=== PATIENT | female | born 1950 | race Caucasian/White ===

== ENCOUNTER 2016-12-11 17:23 | Emergency (ER) | payer MEDICARE, MEDICAID ==
[2016-12-11] MEDS ORDERED: Dexamethasone 4 mg/ml Vial ONE (17:56)
== END 2016-12-11 18:31 | disposition home or self-care (01) ==
LOC: ERS 17:23
DX: L85.3 Xerosis cutis (principal); I25.10 Atherosclerotic heart disease of native coronary artery without angina pectoris; E03.9 Hypothyroidism, unspecified; I10 Essential (primary) hypertension; J43.9 Emphysema, unspecified; F17.210 Nicotine dependence, cigarettes, uncomplicated
CPT/HCPCS: 96372; J1100

== ENCOUNTER 2016-12-14 17:57 | Emergency (ER) | payer MEDICARE, MEDICAID ==
[2016-12-14 18:19] LABS: #Basophils 0.1 thou/uL (0.0-0.2); #Eosinphils 0.1 thou/uL (0.0-0.7); #Lymphocytes 3.1 thou/uL (1.20-3.40); #Monocytes 0.7 thou/uL (0.11-0.59); #Neutrophils 7.1 thou/uL (1.40-6.50); %Basophils 0.8 % (0.0-1.0); %Eosinophils 0.7 % (0.0-10.0); %Lymphocytes 28.1 % (21.0-51.0); %Monocytes 6.4 % (0.0-10.0); Hematocrit 46.3 % (36.0-47.0); Mean Platelet Volume 8.4 fL (7.4-10.4); Red Blood Cell (RBC) Count 4.86 mill/uL (4.20-5.40); White Blood Cell (WBC) Count 11.1 thou/uL (4.8-10.8)
[2016-12-14 18:25] LABS: PTT 29.3 SEC (22.9-36.1); Prothrombin Time 13.9 SEC (12.0-14.7)
[2016-12-14 18:46] LABS: ALT (SGPT) 16 U/L (8-55); AST (SGOT) 19 U/L (5-34); Alkaline Phosphatase 67 U/L (40-150); Anion Gap 13 mmol/L (10-20); BUN (Urea Nitrogen) 8 mg/dL (9.8-20.1); Bilirubin, Total 0.6 mg/dL (0.2-1.2); CK (CPK) 65 U/L (29-168); Calc. Creatinine Clearance 0 mL/min (70-130); Calcium 8.4 mg/dL (7.8-10.44); Carbon Dioxide 25 mmol/L (23-31); Chloride 102 mmol/L (98-107); Estimated GFR-MDRD 73; Globulin 4.8 g/dL (2.4-3.5); Lipase 15 U/L (8-78); Protein, Total 8.7 g/dL (6.0-8.3)
--- NOTE | 2016-12-14 18:49 | RAD ---
CHEST ONE VIEW PORTABLE: 12/14/16 HISTORY: 66-year-old female with chest pain and hives and difficulty breathing. COMPARISON: 07/29/12, 07/01/16. Monitor leads overlie the chest. There is borderline cardiomegaly. There are extensive linear, inter stitial and reticulonodular parenchymal changes bilaterally which appear stable from the prior study . These have the appearance of extensive chronic interstitial lung disease including pulmonary fibro sis. Minimal hyperinflation. No confluent pneumonia. IMPRESSION: Extensive bilateral interstitial, linear, and reticulonodular parenchymal changes stable from prior study. Evidence for extensive chronic interstitial lung disease including interstitial fibrosis. Bor derline cardiomegaly. No confluent pneumonia. POS: [facility]
[2016-12-14 18:50] LABS: Troponin I Less than 0.010 ng/mL (< 0.028)
[2016-12-14] MEDS ORDERED: Fentanyl 100 MCG/2 ML VIAL ONE (18:55)
[2016-12-14] MEDS ORDERED: Lorazepam 1 MG TAB ONE (18:55)
== END 2016-12-14 22:30 | disposition home or self-care (01) ==
LOC: ERS 17:57
DX: L30.9 Dermatitis, unspecified (principal); I25.10 Atherosclerotic heart disease of native coronary artery without angina pectoris; I25.2 Old myocardial infarction; E03.9 Hypothyroidism, unspecified; I10 Essential (primary) hypertension; J44.9 Chronic obstructive pulmonary disease, unspecified; F17.210 Nicotine dependence, cigarettes, uncomplicated; Z79.899 Other long term (current) drug therapy
CPT/HCPCS: 71010; 80053; 82553; 83690; 84484; 85025; 85610; 85730; 93005; 94760; 96374; J3010

== ENCOUNTER 2017-10-16 13:43 | Outpatient (CLI) | payer MEDICARE, MEDICAID ==
--- NOTE | 2017-10-16 14:41 | RAD ---
PA AND LATERAL CHEST: Indication: History or dyspnea. Comparison: 12-14-16 FINDINGS: Fibrotic change is stable. Mild cardiomegaly is stable. No pleural effusion is evident. No acute osse ous abnormality is noted. IMPRESSION: Stable chronic lung changes. POS: [facility]
== END 2017-10-16 13:44 | disposition home or self-care (01) ==
LOC: RAD 13:43
PROVIDERS: ATTEND Internal Medicine
DX: R06.00 Dyspnea, unspecified (principal)
CPT/HCPCS: 36415; 71046; 80053; 80061; 84443; 85025

== ENCOUNTER 2017-12-02 12:59 | Outpatient (CLI) | payer MEDICARE, MEDICAID | END 2017-12-02 13:00 | disposition home or self-care (01) | LOC: CP 12:59 | PROVIDERS: ATTEND Internal Medicine | DX: J44.9 Chronic obstructive pulmonary disease, unspecified (principal) | CPT/HCPCS: 94060; 94727; 94729 ==

== ENCOUNTER 2017-12-25 20:30 | Outpatient (CLI) | payer MEDICARE, MEDICAID | END 2017-12-25 20:31 | disposition home or self-care (01) | LOC: SLEEPLAB 20:30 | PROVIDERS: ATTEND Internal Medicine | DX: G47.33 Obstructive sleep apnea (adult) (pediatric) (principal); R09.89 Other specified symptoms and signs involving the circulatory and respiratory systems; E66.9 Obesity, unspecified; R51 Headache; R06.83 Snoring; I10 Essential (primary) hypertension; R35.1 Nocturia; K21.9 Gastro-esophageal reflux disease without esophagitis; R09.02 Hypoxemia; Z68.30 Body mass index [BMI] 30.0-30.9, adult | CPT/HCPCS: 95810 ==

== ENCOUNTER 2018-01-15 13:12 | Outpatient (CLI) | payer MEDICARE, MEDICAID ==
--- NOTE | 2018-01-15 16:03 | CT ---
HIGH RESOLUTION CHEST CT: 01/15/18 HISTORY: Long time smoker. Interstitial lung disease. Shortness of breath. COMPARISON: A CT pulmonary lung scan performed 09/09/[address] angio of the chest which was performed 07/18 04/01. There is fairly extensive interstitial fibrotic lung changes. There is evidence for honeycombing in t he lung apices. The changes are slightly upper lobe predominant, particularly the honeycombing type c hanges and more peripheral in orientation. The findings when considering the differences in technique are fairly similar to the previous examination. The honeycombing changes may have slightly progresse d, although difficult to compared given the differences in technique. No bronchiectatic change. No pu lmonary nodules or any discrete infiltrates are seen. The mediastinal nodes are stable. The visualized liver parenchyma shows no focal findings. The right and left adrenal glands are normal . IMPRESSION: Interstitial fibrotic lung change with evidence of honeycombing in the upper lobes. Changes are sligh tly more upper lobe predominant and also generally more peripheral in location but nonspecific. Findi ngs are relatively stable as compared to the previous studies. POS: [facility]
== END 2018-01-15 13:13 | disposition home or self-care (01) ==
LOC: BICCT 13:12
PROVIDERS: ATTEND Internal Medicine
DX: J84.10 Pulmonary fibrosis, unspecified (principal); G47.33 Obstructive sleep apnea (adult) (pediatric); J96.11 Chronic respiratory failure with hypoxia; J98.4 Other disorders of lung
CPT/HCPCS: 36415; 71250; 82787; 83520; 86038; 86200; 86225; 86256; 86331; 86602; 86606; 86671

== ENCOUNTER 2018-09-16 13:04 | Outpatient (CLI) | payer MEDICARE, MEDICAID ==
--- NOTE | 2018-09-18 10:44 | PFT ---
PATIENT HISTORY: HEIGHT: 62 IN WEIGHT: 185 SMOKER: YES HOW LON YRS PACKS PER DAY 1 PRODUCTIVE COUGH: LUNG DISEASE: PHYSICIAN INTERPRETATION FINAL REPORT: There is mild reduction in Vital Capacity, Expiratory Flows are normal. Gas transfer is severely reduced. IMPRESSION: Restrictive pulmonary impairment. Severely reduced diffusion capacity Journeyman Plumber: RICARDO Welder Gas: RICARDO HEREDIA
== END 2018-09-16 13:05 | disposition home or self-care (01) ==
LOC: CP 13:04
PROVIDERS: ATTEND Internal Medicine
DX: J84.9 Interstitial pulmonary disease, unspecified (principal)
CPT/HCPCS: 94010; 94729

== ENCOUNTER 2018-09-25 13:31 | Emergency (ER) | payer MEDICARE, MEDICAID ==
[2018-09-25] MEDS ORDERED: Fentanyl 100 MCG/2 ML VIAL ONE (14:03)
[2018-09-25 14:04] LABS: #Eosinphils 0.2 thou/uL (0.0-0.7); #Lymphocytes 2.7 thou/uL (1.20-3.40); #Monocytes 0.5 thou/uL (0.11-0.59); #Neutrophils 6.6 thou/uL (1.40-6.50); %Basophils 0.5 % (0.0-1.0); %Eosinophils 2.2 % (0.0-10.0); %Lymphocytes 26.6 % (21.0-51.0); %Monocytes 5.1 % (0.0-10.0); %Neutrophils 65.6 % (42.0-75.0); Hemoglobin 14.2 g/dL (12.0-16.0); Mean Corpuscular HGB CONC 33.3 g/dL (32.0-36.0); Mean Corpuscular Hemoglobin 29.3 pg (27.0-31.0); Mean Corpuscular Volume 88.1 fL (78.0-98.0); Mean Platelet Volume 8.3 fL (7.4-10.4); Platelet Count 238 thou/uL (130-400); RBC Distribution Width 12.9 % (11.5-14.5); Red Blood Cell (RBC) Count 4.85 mill/uL (4.20-5.40); White Blood Cell (WBC) Count 10.1 thou/uL (4.8-10.8)
[2018-09-25] MEDS ORDERED: Promethazine HCl 25 MG/ML VIAL ONE (14:04)
[2018-09-25 14:25] LABS: ALT (SGPT) 11 U/L (8-55); AST (SGOT) 17 U/L (5-34); Albumin 3.8 g/dL (3.4-4.8); Alkaline Phosphatase 68 U/L (40-150); Anion Gap 13 mmol/L (10-20); BUN (Urea Nitrogen) 9 mg/dL (9.8-20.1); Bilirubin, Total 0.5 mg/dL (0.2-1.2); Calc. Creatinine Clearance 0 mL/min (70-130); Calcium 9.2 mg/dL (7.8-10.44); Carbon Dioxide 26 mmol/L (23-31); Chloride 100 mmol/L (98-107); Estimated GFR-MDRD 67; Globulin 4.5 g/dL (2.4-3.5); Glucose 95 mg/dL (80-115); Protein, Total 8.3 g/dL (6.0-8.3); Sodium 135 mmol/L (136-145)
--- NOTE | 2018-09-25 14:58 | CT ---
CTA CHEST WITH IV CONTRAST AND 3-D POSTPROCESSING CTA ABDOMEN WITH IV CONTRAST AND 3-D POSTPROCESSING: HISTORY: Back pain, concern for aortic dissection FINDINGS: There are vascular calcifications in good contrast opacification of the thoracoabdominal aorta withou t intimal flap to suggest dissection. There is mediastinal lymphadenopathy with a large right paratracheal lymph node measuring about 2.2 cm. There are changes of pulmonary fibrosis in the lung f ields bilaterally. No pleural or pericardial effusions are identified. No free air or free fluid is seen in the abdomen. The solid organs are grossly unremarkable. The carola ent is post cholecystectomy. A small hiatal hernia is present. There are degenerative changes in the thoracic and lumbar spine. IMPRESSION: 1. No evidence of aortic aneurysm or dissection. 2. Mediastinal lymphadenopathy.
[2018-09-25] MEDS ORDERED: Diazepam 5 MG TAB ONE (15:58)
[2018-09-25] MEDS ORDERED: ISOVUE-370 76%-LOCM 1 ML ONE (16:06)
--- NOTE | 2018-10-03 11:58 | EKG ---
Test Reason : Blood Pressure : / mmHG Vent. Rate : 053 BPM Atrial Rate : 053 BPM P-R Int : 122 ms QRS Dur : 082 ms QT Int : 488 ms P-R-T Axes : 058 067 041 degrees QTc Int : 457 ms Sinus bradycardia When compared with ECG of 14-DEC-2016 T waves inversion , old Confirmed by DARRION THAPA DO ([id number]), online editor KHANG ALCANTAR ([id number]) on 10/03/2018 11:58:10 AM Referred By: Confirmed By:DARRION THAPA DO
== END 2018-09-25 16:54 | disposition home or self-care (01) ==
LOC: ERS 13:31
DX: M54.5 Low back pain (principal); I25.10 Atherosclerotic heart disease of native coronary artery without angina pectoris; E03.9 Hypothyroidism, unspecified; I10 Essential (primary) hypertension; J44.9 Chronic obstructive pulmonary disease, unspecified; F17.210 Nicotine dependence, cigarettes, uncomplicated; Z79.899 Other long term (current) drug therapy
CPT/HCPCS: 71275; 80053; 84484; 85025; 93005; 96361; 96365; 96374; J2550; J3010; Q9966

== ENCOUNTER 2018-09-28 11:24 | Emergency (ER) | payer MEDICARE, MEDICAID ==
[2018-09-28 14:09] LABS: Bilirubin Negative (Negative); Blood, Urine Trace (Negative); Clarity Turbid (Clear); Glucose, Urine (Dipstick) Normal (Negative); Leukocyte 500 Leu/uL (Negative); Nitrite Negative (Negative); Protein, Urine (Dipstick) 10 mg/dL (Neg-Trace); Urobilinogen Normal mg/dL (Less than 2); WBC/HPF Greater than 50 HPF (0-3)
[2018-09-28] MEDS ORDERED: Ondansetron ODT 4 MG TAB ONE (14:14)
[2018-09-28] MEDS ORDERED: HYDROcodone/Acetaminophen 5/325 mg Tablet ONE (14:14)
[2018-09-28 14:23] LABS: Bacteria/HPF 3+ HPF (None Seen)
--- NOTE | 2018-09-28 14:40 | CT ---
CT lumbar spine without contrast: HISTORY: Back Pain COMPARISON: No prior CT exams of the lumbar spine available FINDINGS: Vascular calcifications are seen in the abdominal aorta and involving the iliac arteries. There is mi ld nonspecific dilatation of the proximal right ureter of uncertain etiology. No overt hydronephrosis is present. There is a compression fracture involving the superior endplate of the T12 vertebral body. This was s een on CTA of the abdomen on 09/25/2018; although, better delineated on this examination, and the degree of height loss is increased from that exam with approximately 10-15% loss of height. There is trace retropulsion of the posterior superior endplate of the T12 vertebral body with only very slight effacement of the ventral aspect of the ventral subarachnoid space in this region. Remaining v ertebral body heights are within normal limits, and no additional fracture or subluxation is seen. T12-L1 level: There is a mild disc osteophyte complex which results in slight effacement of the ventr al subarachnoid space. Neural foramina are patent. L1-2: There is trace retrolisthesis of L1 on L2. There is no significant central canal or neural fora tana narrowing. L2-3: There is a minimal disc osteophyte complex with slight with mild degree of height loss. Flatten ing of the anterior aspect of the thecal sac. Neural foramina are patent. L3-4: There is a mild broad-based disc bulge and facet hypertrophic changes. There is mild generalize d narrowing of the central spinal canal. Only minimal encroachment on each neural foramen is present. L4-5: There is mild broad-based disc osteophyte complex and facet hypertrophic changes with associate d mild ligamentous thickening. Findings result in mild generalized narrowing of the central spinal canal with mild right and minimal left-sided neural foraminal narrowing. L5-S1: There is a broad-based disc osteophyte complex with calcification of the posterior central mar gin of the intervertebral disc. There is no significant narrowing of the central spinal canal or either neural foramen. Facet degenerative changes are present. IMPRESSION: 1. Burst fracture superior endplate T12 vertebral body; however, the degree of height loss is increas ed from the study on 09/25/2018. 2. Mild degenerative changes in the lumbar spine. 3. Slight retrolisthesis of L1 on L2.
== END 2018-09-28 15:38 | disposition home or self-care (01) ==
LOC: ERS 11:24
DX: S22.081A Stable burst fracture of T11-T12 vertebra, initial encounter for closed fracture (principal); I49.9 Cardiac arrhythmia, unspecified; E03.9 Hypothyroidism, unspecified; I10 Essential (primary) hypertension; F17.210 Nicotine dependence, cigarettes, uncomplicated; X58.XXXA Exposure to other specified factors, initial encounter
CPT/HCPCS: 72131; 81003; 81015; Q0162

== ENCOUNTER 2018-10-20 11:31 | Day surgery (SDC) | payer MEDICARE, MEDICAID ==
[2018-10-16 12:20] VITALS: BMI 33.8
[2018-10-20] MEDS ORDERED: Sodium Chloride 0.9% 1,000 ML IV SCH (12:15)
[2018-10-20] MEDS ORDERED: Lidocaine 4% PF 5 ML AMP NEB SCH (12:15)
[2018-10-20] MEDS ORDERED: Fentanyl 100 MCG/2 ML VIAL ONE ×3 (12:33→15:35)
[2018-10-20] MEDS ORDERED: Famotidine/PF 20 mg/2ml Vial ONE (12:33)
--- NOTE | 2018-10-20 14:18 | HP ---
SERVICE: Pulmonary Medicine. REASON FOR VISIT: Followup hospital stay. HISTORY OF PRESENT ILLNESS: The patient is a very pleasant 68-year-old white female with past medical history significant for an interstitial lung process. Previously, this was fairly quiescent. We have been following her in the outpatient setting, and pulmonary function studies were roughly stable, if not, slightly decreasing. That being said, she remained asymptomatic and did not have significant dyspnea that limited her activity or cough. A friend was helping her moving some furniture and they were doing it wrong. She went to help, and when she lifted this dresser, she felt a horrendous pop in her back and had immediate onset of back discomfort. She sought medical attention for this thing. A CT of the aorta was performed in the emergency department. On it, she redemonstrated her mediastinal lymphadenopathy, but she seemed to have some degree of progression of interstitial lung process. As such, she was asked to return here. She is coughing a little bit more than typical. It is not a daily cough, and it is not pervasive throughout the day. It is nonproductive. She is also having a little bit of increasing dyspnea ever since she got the pop in her back. She believes that this is likely secondary to discomfort because when she takes a deep breath, it hurts. PAST MEDICAL HISTORY: 1. Fibromyalgia. 2. Dyslipidemia. 3. Hypothyroidism, status post radioiodine ablation. 4. Hypertension. 5. Osteoporosis. 6. Osteoarthritis. 7. Chronic pain. 8. Gastroesophageal reflux disease. 9. Interstitial lung disease. 10. Abnormal CANDACE. 11. Chronic hypoxic respiratory failure. PAST SURGICAL HISTORY: 1. Cholecystectomy. 2. Cardiac catheterization x2. 3. Hysterectomy. 4. Right leg surgeries, multiple secondary to E. coli infection. 5. Oophorectomy. 6. Resection of the bottom of her foot for a pompholyx. SOCIAL HISTORY: Negative for any significant alcohol or illicit drug use. She has a [id number] history of smoking and is actively trying to quit. She denies any exposure to chemicals, dust, asbestos, or tuberculosis. FAMILY HISTORY: Positive for anemia, diabetes, heart disease, COPD, cancer, heart failure, thyroid disease, arthritis, hypertension, sleep apnea, major depressive disorder, and interstitial lung disease in 2 sisters. Additionally, she had a child who with asthma exacerbation. ALLERGIES: LATEX, PENICILLIN, NONSTEROIDAL ANTI-INFLAMMATORY DRUGS, ASPIRIN, BENADRYL, FOSAMAX, WELLBUTRIN. MEDICATIONS: 1. Metoprolol 12.5 mg p.o. b.i.d. 2. Plavix 75 mg p.o. daily (on hold). 3. Levothyroxine 100 mcg p.o. daily. 4. Hydroxyzine 25 mg p.o. q.8 hours. 5. Trazodone 50 mg p.o. at bedtime. 6. Gabapentin 300 mg p.o. q.6 hours. 7. Protonix 40 mg p.o. daily. 8. Chantix 1 mg p.o. b.i.d. 9. Zofran 4 mg p.o. b.i.d. while using Chantix. 10. Combivent 1 inhalation q.6 hours as needed (rare use). REVIEW OF SYSTEMS: General, head, ears, eyes, nose, throat, cardiovascular, respiratory, GI, , musculoskeletal, neurologic, and skin is negative except as mentioned in the HPI. PHYSICAL EXAMINATION: VITAL SIGNS: Afebrile, pulse 63, respirations 14, and saturation 94% on room air. GENERAL: The patient is awake and alert, in no apparent distress. LUNGS: Decent air entry. Minimal crackling is present. No prolonged expiratory phase or rhonchi are appreciated. HEART: Normal rate and regular. ABDOMEN: Soft, nontender, nondistended. Bowel sounds are positive. MUSCULOSKELETAL: No cyanosis or clubbing. No pitting in the bilateral lower extremities. NEUROLOGIC: Grossly nonfocal. IMAGING STUDIES: CT with contrast did not demonstrate any significant aortopathy. That being said, there seems to be some degree of progression of the interstitial lung process. Mediastinal lymphadenopathy is once again redemonstrated. This has been stable since 2013. ASSESSMENT: 1. Interstitial lung disease, likely associated with connective tissue process. 2. Abnormal CANDACE. 3. Pulmonary fibrosis with predominantly apical distribution. 4. Chronic hypoxic respiratory failure. 5. Mediastinal lymphadenopathy, stable since 2013. DISCUSSION AND PLAN: The patient will undergo a bronchoscopy and an endoscopic bronchial ultrasound-guided fine-needle aspiration of the mediastinal lymph nodes. The bronchoscopy is to investigate the interstitial lung process. I do believe this is a chronic issue. Since we are going to put her through procedure, at the same time, we will sample a lymph node to see if this gives us any idea about what our diagnosis is. Return to clinic as previously directed in clinic. Job ID: [id number]
[2018-10-20 16:39] LABS: BF Color Colorless; BF RBC Count - Manual 1044 /cumm; BF WBC/Nonhematics Ct. - Manua 190 /cumm; Body Fluid Source Bronchial Washings; Clarity Hazy (Clear); Tube # 1
[2018-10-20 16:59] LABS: BF Segmented Neutrophils 10 %; Cell Count Non Hematic 70 %; Eosinophils 12 %; Lymphocytes 7 %
[2018-10-20] MEDS ORDERED: ePHEDrine 50 MG/ML VIAL ONE (17:51)
[2018-10-20] MEDS ORDERED: Lidocaine 1% PF 5 ML VIAL ONE (17:51)
[2018-10-20] MEDS ORDERED: Succinylcholine Chloride 20 MG/ML 10 ml SYRINGE FS ONE (17:51)
[2018-10-20] MEDS ORDERED: PROPOFOL 200 MG/20 ML VIAL ONE (17:51)
--- NOTE | 2018-10-21 02:15 | OP ---
DATE OF PROCEDURE: 10/20/2018 SERVICE: Pulmonary Medicine. PROCEDURE PERFORMED: Fiberoptic bronchoscopy with; 1. Visual airway inspection. 2. Bronchoalveolar lavage of the right lower lobe. 3. Transbronchial biopsies of the right middle lobe and right lower lobe. 4. Endoscopic bronchial ultrasound-guided transbronchial needle aspiration of station R4, 7. PREPROCEDURE DIAGNOSES: 1. Interstitial lung disease. 2. Mediastinal lymphadenopathy. POSTPROCEDURE DIAGNOSES: 1. Interstitial lung disease. 2. Mediastinal lymphadenopathy. ANESTHESIA: General. PREANESTHESIA ASSESSMENT: H and P had been performed. The patient's medications and allergies were reviewed. Informed consent was obtained after discussing the rationale, benefits, and risks of the procedure. Alternative options for sample collection were discussed. TIME-OUT: The patient was positively identified with name and date of . The proposed procedure was verified. After the induction with anesthesia, the curvilinear endoscopic bronchial ultrasound Olympus bronchoscope was introduced through the endotracheal tube and into the tracheobronchial tree. Very limited airway inspection was carried out with no abnormalities noted in the trachea or mainstem bronchi. The mucosal surfaces were friable and inflamed throughout with no discrete lesions identified. The bronchoscope was withdrawn into the trachea and a lucia survey was performed. Endoscopic ultrasound-guided transbronchial needle aspiration of station R4 and 7 was performed. No significant post biopsy bleeding occurred. The patient has stable vitals throughout the entire procedure without significant desaturations. This scope was removed and a diagnostic fiberoptic bronchoscope was subsequently introduced. It was advanced into the trachea, where a tracheobronchial tree inspection was carried out with clear identification of the right upper lobe, right middle lobe, right lower lobe, left upper lobe, lingula , and left lower lobe. Anatomy was normal to the segmental level. Bronchoalveolar lavage was obtained from the right lower lobe. Transbronchial biopsies were subsequently obtained in the right lower lobe and right middle lobe under fluoroscopic guidance. Hemostasis was verified. The bronchoscope was subsequently removed from the patient. Postprocedure x-ray did not demonstrate a pneumothorax. FINDINGS: 1. No endobronchial disease was identified. 2. Mucosal surfaces were inflamed and friable throughout bilateral lung servin. 3. Secretions were minimal, but extremely tenacious, with a pale yellow color. 4. Sanjuana appeared blunted. 5. Rapid on-site pathology demonstrated adequate lymphocytes with no obvious malignancies present. They requested an additional sample for flow, which was subsequently provided. SPECIMENS OBTAINED: 1. FNA of R4, 7 for ROSP, cell block, and flow. 2. Pathology on BAL and transbronchial biopsies. 3. Microbiology on BAL. COMPLICATIONS: None. ESTIMATED BLOOD LOSS: 5 mL. FLUOROSCOPY TIME: 75 seconds. DISPOSITION: The patient will be discharged home with postprocedure instructions. She will return to clinic as previously directed. Job ID: [id number] MTDD
== END 2018-10-20 17:15 | disposition home or self-care (01) ==
LOC: SDC 11:31
PROVIDERS: ATTEND Internal Medicine
PROC: 0BDF8ZX Extraction of Right Lower Lung Lobe, Via Natural or Artificial Opening Endoscopic, Diagnostic (ICD-10-PCS; principal; 2018-10-20)
PROC: 0B9F8ZX Drainage of Right Lower Lung Lobe, Via Natural or Artificial Opening Endoscopic, Diagnostic (ICD-10-PCS; 2018-10-20)
PROC: 07D78ZX Extraction of Thorax Lymphatic, Via Natural or Artificial Opening Endoscopic, Diagnostic (ICD-10-PCS; 2018-10-20)
DX: R59.0 Localized enlarged lymph nodes (principal); J84.10 Pulmonary fibrosis, unspecified; J96.11 Chronic respiratory failure with hypoxia; I10 Essential (primary) hypertension; E78.5 Hyperlipidemia, unspecified; E03.9 Hypothyroidism, unspecified; M19.90 Unspecified osteoarthritis, unspecified site; K21.9 Gastro-esophageal reflux disease without esophagitis; M81.0 Age-related osteoporosis without current pathological fracture; Z87.891 Personal history of nicotine dependence; Z88.0 Allergy status to penicillin; Z88.8 Allergy status to other drugs, medicaments and biological substances; Z91.040 Latex allergy status
CPT/HCPCS: 76000; 85060; 87070; 87116; 87205; 87206; 88112; 88172; 88173; 88177; 88184; 88305; 88312; 89051; J0131; J2001; J2704; J3010; J3490; J7620; S0028

== ENCOUNTER 2018-11-19 07:53 | Inpatient (IN) | payer MEDICARE, MEDICAID ==
[2018-11-18 12:22] VITALS: BMI 32.1
[2018-11-19] MEDS ORDERED: PROPOFOL 200 MG/20 ML VIAL ONE (10:12)
[2018-11-19] MEDS ORDERED: Rocuronium Bromide 10 MG/ML (10ML VIAL) ONE (10:12)
[2018-11-19] MEDS ORDERED: Ondansetron PF 4 MG/2 ML Vial ONE (10:12)
[2018-11-19] MEDS ORDERED: Glycopyrrolate 0.2 MG/ML 5 ML SYRINGE ONE (10:12)
[2018-11-19] MEDS ORDERED: Lidocaine 1% PF 5 ML VIAL ONE (10:12)
[2018-11-19] MEDS ORDERED: Dexamethasone 20 MG/5 ML VIAL ONE (10:12)
[2018-11-19] MEDS ORDERED: Midazolam HCl 2 mg/2 ml Vial ONE (10:35)
[2018-11-19] MEDS ORDERED: Fentanyl 100 MCG/2 ML VIAL ONE ×2 (10:35→13:21)
[2018-11-19] MEDS ORDERED: Clindamycin/D5W 900 mg/50 ml Premix Bag ONE (10:59)
[2018-11-19] MEDS ORDERED: Levofloxacin 500 mg/D5W 100 ml Premix Bag ONE (10:59)
[2018-11-19 12:01] LABS: #Eosinphils 0.3 thou/uL (0.0-0.7); #Monocytes 0.4 thou/uL (0.11-0.59); %Basophils 0.6 % (0.0-1.0); %Eosinophils 3.4 % (0.0-10.0); %Lymphocytes 26.4 % (21.0-51.0); %Monocytes 4.9 % (0.0-10.0); %Neutrophils 64.7 % (42.0-75.0); Anion Gap 13 mmol/L (10-20); BUN (Urea Nitrogen) 6 mg/dL (9.8-20.1); Calc. Creatinine Clearance 80 mL/min (70-130); Calcium 9.3 mg/dL (7.8-10.44); Carbon Dioxide 26 mmol/L (23-31); Chloride 100 mmol/L (98-107); Estimated GFR-MDRD 67; Glucose 79 mg/dL (80-115); Hemoglobin 15.9 g/dL (12.0-16.0); Mean Corpuscular HGB CONC 33.6 g/dL (32.0-36.0); Mean Corpuscular Hemoglobin 29.7 pg (27.0-31.0); Mean Corpuscular Volume 88.6 fL (78.0-98.0); Mean Platelet Volume 8.8 fL (7.4-10.4); Platelet Count 190 thou/uL (130-400); RBC Distribution Width 12.8 % (11.5-14.5); Red Blood Cell (RBC) Count 5.37 mill/uL (4.20-5.40); Sodium 135 mmol/L (136-145); White Blood Cell (WBC) Count 7.7 thou/uL (4.8-10.8)
[2018-11-19] MEDS ORDERED: Bupivacaine HCl 0.5%/Epinephrine 1:200,000/PF 30 ml Vial ONE (12:43)
[2018-11-19] MEDS ORDERED: Ondansetron HCl/PF 4 MG/2 ML Vial IVP PRN (13:22)
[2018-11-19] MEDS ORDERED: Albumin 5% 500 ML ONE (13:44)
[2018-11-19] MEDS ORDERED: hydrOXYzine 25 MG TAB PO PRN (14:05)
[2018-11-19] MEDS ORDERED: Fentanyl 100 MCG/2 ML VIAL SLOW IVP PRN (14:05)
[2018-11-19] MEDS ORDERED: Ondansetron PF 4 MG/2 ML Vial IVP PRN (14:05)
[2018-11-19] MEDS ORDERED: HYDROcodone/Acetaminophen 10/325 mg Tablet PO PRN (14:05)
[2018-11-19] MEDS ORDERED: Promethazine HCl 25 MG/ML VIAL IM PRN (14:05)
[2018-11-19] MEDS ORDERED: Acetaminophen 325 MG TAB PO PRN (14:05)
[2018-11-19] MEDS ORDERED: HYDROcodone/Acetaminophen 5/325 mg Tablet PO PRN (14:05)
[2018-11-19] MEDS ORDERED: hydrALAZINE 20 MG/ML VIAL SLOW IVP PRN (14:05)
--- NOTE | 2018-11-19 15:00 | RAD ---
EXAM: Single view of the chest HISTORY: Status post thoracotomy COMPARISON: 12/14/2016 FINDINGS: Single view of the chest shows a normal sized cardiomediastinal silhouette. Diffuse increa sed interstitial markings are present. There is a right-sided chest tube without obvious pneumothorax. There is no evidence of consolidation, mass, or pleural effusion. The bones are unrema rkable. IMPRESSION: Status post right thoracotomy without evidence of pneumothorax.
--- NOTE | 2018-11-19 16:24 | OP ---
DATE OF PROCEDURE: 11/19/2018 PREOPERATIVE DIAGNOSIS: Bilateral interstitial lung disease. POSTOPERATIVE DIAGNOSIS: Bilateral interstitial lung disease. PROCEDURE PERFORMED: Right thoracoscopy with right middle lobe wedge resection sent for pathology. ANESTHESIA: General endotracheal - Dr. Erick Ho. ESTIMATED BLOOD LOSS: Minimal. DRAINS: A 24-[place] Brandon drain x1. SPECIMENS: Right middle lobe wedge resection. DESCRIPTION OF PROCEDURE: After consent was obtained, the patient was brought to the operating room, placed in supine position on the operating room table. Appropriate central line and monitors were placed and general endotracheal anesthesia was induced. The patient was placed in the left lateral decubitus position. Joints were appropriately padded. SCDs were used. Flexible fiberoptic bronchoscopy was used to position the endotracheal tube and confirmed its positioning after rolling the patient. The right chest wall was prepped and draped in usual sterile fashion. Three separate port incisions were made. The lung was inspected. There was a nodular appearance to the surface of the lung. There was no pleural abnormality. There was no pleural fluid. The right middle lobe was elevated and a wedge resection taken. This was sent for routine pathologic examination. A 24-[place] chest tube was placed through the anterior port site. This was secured with silk suture. Wounds were closed in layers. 0.5% Marcaine block was performed. The patient was then awakened, extubated, and transferred to the recovery room in stable condition. Needle, sponge, and instrument counts were all reported as correct at the end of the procedure. Job ID: [id number]
[2018-11-19] MEDS: Fentanyl 100 MCG/2 ML VIAL SLOW IVP PRN ×3 (16:58→21:57)
[2018-11-19] MEDS ORDERED: ICOSAPENT ETHYL PO SCH (17:00)
[2018-11-19] MEDS: Sodium Chloride 0.9% 1,000 ML IV SCH (17:14)
[2018-11-19] MEDS: Gabapentin 300 MG CAP PO SCH ×2 (17:15→19:58)
--- NOTE | 2018-11-19 17:48 | CON ---
DATE OF CONSULTATION: 11/19/2018 CONSULTING PHYSICIAN: Dr. Dickson. REASON FOR CONSULTATION: Followup of lung biopsy. HISTORY OF PRESENT ILLNESS: This is a 68-year-old female, who underwent a right-sided thoracoscopic biopsy today for work up of interstitial lung disease. I saw her in the operating room afterward. Currently, she is having some pain from the surgery, but is otherwise doing well. PAST MEDICAL HISTORY: 1. Fibromyalgia. 2. Hyperlipidemia. 3. Hypothyroidism. 4. Hypertension. 5. Osteoporosis. 6. Osteoarthritis. 7. Gastroesophageal reflux disease. 8. Interstitial lung disease. 9. Elevated CANDACE. 10. Chronic hypoxic respiratory failure. PAST SURGICAL HISTORY: 1. Cholecystectomy. 2. Cardiac catheterization. 3. Hysterectomy. 4. Multiple leg surgeries. 5. Oophorectomy. FAMILY MEDICAL HISTORY: Remarkable for hypertension and heart disease. MEDICATIONS: Prior to admission: 1. Metoprolol. 2. Levothyroxine. 3. Plavix. 4. Norvasc. 5. Rosuvastatin. 6. Trazodone. 7. Hydralazine. 8. Gabapentin. 9. Hydrocodone/acetaminophen. 10. Combivent. SOCIAL HISTORY: Smokes 1 to 9 cigarettes per day. Does not consume alcohol. ALLERGIES: LATEX, PENICILLIN, NSAIDS, ASPIRIN, BENADRYL, FOSAMAX, AND WELLBUTRIN. PHYSICAL EXAMINATION: VITAL SIGNS: Heart rate 57, blood pressure 118/66, respiratory rate 18, and O2 saturation 94%. HEENT: Unremarkable. NECK: No adenopathy or JVD. CHEST: Clear to auscultation. CARDIAC: S1 and S2. Regular. ABDOMEN: Soft. EXTREMITIES: No clubbing, cyanosis, or edema. IMAGING: Chest x-ray shows a chest tube on the right. She has diffuse interstitial disease seen bilaterally. LABORATORY DATA: White blood cell count 7.7, hematocrit 47, and platelet count 190. Sodium 135, potassium 4, chloride 100, CO2 of 26, BUN 6, creatinine 0.8, and glucose 79. ASSESSMENT: 1. Status post thoracoscopic lung biopsy. 2. Interstitial lung disease. PLAN: Be happy to follow with you while she is in the hospital. I would expect it to be a few days before we get results. The patient is currently on empiric antibiotics. Job ID: [id number]
[2018-11-19] MEDS: Clindamycin/D5W 900 MG in Premix Bag 1 BAG IVPB SCH (17:50)
[2018-11-19] MEDS: traZODone HCl 50 MG TAB PO SCH (19:56)
[2018-11-19] MEDS: HYDROcodone/Acetaminophen 5/325 mg Tablet PO PRN (19:57)
[2018-11-19] MEDS: Metoprolol Tartrate 25 MG TAB PO SCH (19:57)
[2018-11-20] MEDS: Clindamycin/D5W 900 MG in Premix Bag 1 BAG IVPB SCH ×3 (00:38→10:02)
[2018-11-20] MEDS: Fentanyl 100 MCG/2 ML VIAL SLOW IVP PRN ×5 (00:39→14:00)
[2018-11-20] MEDS: Sodium Chloride 0.9% 1,000 ML IV SCH ×2 (04:47→17:12)
[2018-11-20 05:40] LABS: #Lymphocytes 1.2 thou/uL (1.20-3.40); #Monocytes 0.4 thou/uL (0.11-0.59); #Neutrophils 6.1 thou/uL (1.40-6.50); %Basophils 0.2 % (0.0-1.0); %Eosinophils 0.1 % (0.0-10.0); %Lymphocytes 14.9 % (21.0-51.0); %Monocytes 4.7 % (0.0-10.0); Hemoglobin 14.1 g/dL (12.0-16.0); Mean Corpuscular HGB CONC 32.9 g/dL (32.0-36.0); Mean Corpuscular Hemoglobin 29.5 pg (27.0-31.0); Mean Corpuscular Volume 89.6 fL (78.0-98.0); Mean Platelet Volume 8.4 fL (7.4-10.4); Platelet Count 172 thou/uL (130-400); RBC Distribution Width 12.6 % (11.5-14.5); Red Blood Cell (RBC) Count 4.77 mill/uL (4.20-5.40); White Blood Cell (WBC) Count 7.7 thou/uL (4.8-10.8)
[2018-11-20 05:58] LABS: Anion Gap 12 mmol/L (10-20); BUN (Urea Nitrogen) 7 mg/dL (9.8-20.1); Calc. Creatinine Clearance 90 mL/min (70-130); Calcium 8.9 mg/dL (7.8-10.44); Carbon Dioxide 27 mmol/L (23-31); Chloride 99 mmol/L (98-107); Estimated GFR-MDRD 77; Glucose 88 mg/dL (80-115); Potassium 4.1 mmol/L (3.5-5.1); Sodium 134 mmol/L (136-145)
[2018-11-20] MEDS: Levothyroxine Sodium 100 MCG TAB PO SCH (06:16)
[2018-11-20] MEDS: HYDROcodone/Acetaminophen 5/325 mg Tablet PO PRN ×3 (06:19→17:12)
--- NOTE | 2018-11-20 07:36 | PRG ---
DATE OF SERVICE: 11/20/2018 SUBJECTIVE: She is still sore at her operative site. She slept okay last night. OBJECTIVE: VITAL SIGNS: On exam, temperature is 97.8, pulse in the 40s to 50s, blood pressure 121/62, and O2 saturation 93%. Intake for 24 hours 1051, output 1450. HEENT: Unremarkable. NECK: No adenopathy or JVD. LUNGS: With bilateral soft crackles. She has a chest tube on the right, which I could not detect air leak. CARDIAC: S1 and S2, regular. ABDOMEN: Soft. EXTREMITIES: No edema. IMAGING DATA: Her chest x-ray shows a right chest tube. She has interstitial disease bilaterally. There is no evidence of pneumothorax. LABORATORY DATA: White blood cell count 7.7, hematocrit 42.7, and platelet count 172. Sodium 134, potassium 4.1, chloride 99, CO2 of 27, BUN 7, creatinine 0.7, and glucose 88. ASSESSMENT: Status post thoracoscopic lung biopsy for interstitial lung disease. PLAN: She can probably go home once her chest tube is out. She has oxygen already set up at home. I think it will be several days before her lung biopsy is back and she can follow up with Dr. Kingston in the clinic for that result. Job ID: [id number]
--- NOTE | 2018-11-20 08:50 | RAD ---
SINGLE VIEW OF THE CHEST: COMPARISON: 11/19/2018. HISTORY: Status post thoracotomy with shortness of breath. FINDINGS: A single view of the chest shows an enlarged but stable cardiomediastinal silhouette. Increased inte rstitial lung markings are seen. There is a right-sided chest tube without evidence of pneumothorax. Opacity is developing in the left lung base which may represent a pleural effusion, atelectasis, or an infiltrate. IMPRESSION: Developing opacity in the left lung base may represent atelectasis, infiltrate, or a pleural effusion . POS: [facility]
[2018-11-20] MEDS: Amlodipine 5 MG TAB PO SCH (09:00)
[2018-11-20] MEDS ORDERED: FLU VACC TS2019-20(65YR UP)/PF 180 MCG/0.5 ML SYRINGE IM ONE (09:00)
[2018-11-20] MEDS: Metoprolol Tartrate 25 MG TAB PO SCH ×2 (09:00→19:48)
[2018-11-20] MEDS: Gabapentin 300 MG CAP PO SCH ×3 (10:00→19:47)
[2018-11-20] MEDS: Rosuvastatin 10 MG TAB PO SCH (10:00)
[2018-11-20] MEDS: traZODone HCl 50 MG TAB PO SCH (19:47)
[2018-11-21] MEDS: HYDROcodone/Acetaminophen 5/325 mg Tablet PO PRN ×2 (00:22→09:20)
[2018-11-21] MEDS: Sodium Chloride 0.9% 1,000 ML IV SCH (00:23)
[2018-11-21] MEDS: Levothyroxine Sodium 100 MCG TAB PO SCH (05:43)
[2018-11-21] MEDS: Metoprolol Tartrate 25 MG TAB PO SCH (09:16)
[2018-11-21] MEDS: Amlodipine 5 MG TAB PO SCH (09:16)
[2018-11-21] MEDS: Gabapentin 300 MG CAP PO SCH (09:17)
[2018-11-21] MEDS: Rosuvastatin 10 MG TAB PO SCH (09:17)
--- NOTE | 2018-11-21 10:27 | DIS ---
DATE OF ADMISSION: 11/19/2018 DATE OF DISCHARGE: 11/21/2018 PRINCIPAL DIAGNOSIS: Interstitial lung disease. PROCEDURE PERFORMED: Right thoracoscopy with right middle lobe biopsy. HISTORY OF PRESENT ILLNESS AND HOSPITAL COURSE: The patient is a 68-year-old woman, who is oxygen dependent. She has diffuse interstitial infiltrates in both lungs on chest x-ray. Thoracoscopic lung biopsy was performed to sample sufficient tissue to allow for diagnosis and to guide therapy. She had no air leak on postoperative day #1, and her tube was removed on that afternoon. Today on postoperative day #2, she is afebrile, has O2 sats in the mid 90s. Her chest x-ray shows no pneumothorax, effusion, or focal infiltrate, and she is being discharged home. Job ID: [id number]
[2018-11-21 10:39] VITALS: TEMP 97.7
--- NOTE | 2018-11-21 11:33 | RAD ---
PORTABLE AP CHEST XRAY: HISTORY: Post thoracotomy. COMPARISON: 11/20/2018. FINDINGS: Cardiac silhouette is magnified by projection but stable in size but does appear mildly enlarged. Th ere are stable chronic interstitial lung changes seen bilaterally. No pneumothorax or pleural effusi on is appreciated. There is minimal thickening in the region of the right minor fissure. There are linear densities in the right lung base probably related to atelectasis. The suggested patchy parenc hymal changes of the left lung base are not appreciated on the current study and have improved with o nly mild linear densities present probably related to atelectasis. IMPRESSION: Chronic lung changes and bibasilar atelectasis. POS: [facility]
== END 2018-11-21 13:07 | disposition home or self-care (01) | DRG 167 ==
LOC: SURG A 10:24 → IMCU/EMU 17:07
PROVIDERS: ADMIT Thoracic Surgery (Cardiothoracic Vascular Surgery); ATTEND Thoracic Surgery (Cardiothoracic Vascular Surgery)
PROC: 0BBD8ZX Excision of Right Middle Lung Lobe, Via Natural or Artificial Opening Endoscopic, Diagnostic (ICD-10-PCS; principal; 2018-11-19)
DX: J84.9 Interstitial pulmonary disease, unspecified (principal); J96.11 Chronic respiratory failure with hypoxia; I10 Essential (primary) hypertension; E03.9 Hypothyroidism, unspecified; E78.2 Mixed hyperlipidemia; M79.7 Fibromyalgia; M19.90 Unspecified osteoarthritis, unspecified site; K21.9 Gastro-esophageal reflux disease without esophagitis; F17.210 Nicotine dependence, cigarettes, uncomplicated; Z90.49 Acquired absence of other specified parts of digestive tract; Z90.710 Acquired absence of both cervix and uterus; Z88.0 Allergy status to penicillin; Z88.8 Allergy status to other drugs, medicaments and biological substances
CPT/HCPCS: 36415; 71045; 80048; 85025; 88307; 94640; J0131; J0670; J1100; J1956; J2001; J2250; J2405; J2704; J3010; J3490; J7620; P9045

== ENCOUNTER 2018-12-16 13:33 | Outpatient (CLI) | payer MEDICARE, MEDICAID ==
--- NOTE | 2018-12-16 15:10 | RAD ---
TWO VIEW CHEST: 12/16/18 HISTORY: Interstitial lung disease. COMPARISON: 10/16/17 and a more recent portable exam of 11/21/18. Diffuse interstitial prominence is again seen throughout both lungs. Findings are more pronounced in the right upper lobe but appears stable. Heart size is upper normal and stable. Perihilar haziness is again noted but stable. IMPRESSION: Diffuse interstitial thickening bilaterally with associated stranding The findings appear slightly mo re pronounced when compared to films dating back to 2018 especially in the right upper lobe. Findings have not significantly changed from 11/21/18. POS: [facility]
== END 2018-12-16 13:34 | disposition home or self-care (01) ==
LOC: RAD 13:33
PROVIDERS: ATTEND Thoracic Surgery (Cardiothoracic Vascular Surgery)
DX: J84.9 Interstitial pulmonary disease, unspecified (principal); J98.4 Other disorders of lung
CPT/HCPCS: 71046

== ENCOUNTER 2019-01-05 13:09 | Outpatient (CLI) | payer MEDICARE, MEDICAID ==
--- NOTE | 2019-01-05 13:47 | ULT ---
ULTRASOUND RETROPERITONEUM COMPLETE: (RENAL) DATE: 01/05/2019 HISTORY: 68-year-old female with asymptomatic microscopic hematuria FINDINGS: The right kidney measures 9.5 x 4 x 4 cm. The left kidney measures 9.5 x 5 x 5.5 cm. Both kidneys have normal parenchymal echogenicity. There is no hydronephrosis. No moderate sized or large renal cystic or solid renal lesion is identified. Cursory images of the urinary bladder demonstrate no gross abnormality. IMPRESSION: Normal
== END 2019-01-05 13:10 | disposition home or self-care (01) ==
LOC: BICULT 13:09
PROVIDERS: ATTEND Family Medicine
DX: R31.21 Asymptomatic microscopic hematuria (principal)
CPT/HCPCS: 76770

== ENCOUNTER 2019-10-19 12:58 | Outpatient (CLI) | payer MEDICARE, MEDICAID ==
--- NOTE | 2019-10-19 13:24 | RAD ---
RADIOGRAPH CHEST 2 VIEW: DATE: 10/19/2019 TIME: 1:17 PM HISTORY: 69-year-old female with dyspnea COMPARISON: 12/16/2018 FINDINGS: There is moderate to severe reticular nodular pattern, including honeycombing, throughout all bilater al lung servin. No cardiomegaly or pleural effusion. No pneumothorax. No new consolidation. No definite interval change. IMPRESSION: Moderate to severe chronic pulmonary interstitial disease, pulmonary fibrosis. No major interval amaya ge.
== END 2019-10-19 12:59 | disposition home or self-care (01) ==
LOC: BICRAD 12:58
PROVIDERS: ATTEND Internal Medicine Critical Care Medicine
DX: R06.00 Dyspnea, unspecified (principal); J84.10 Pulmonary fibrosis, unspecified; J84.89 Other specified interstitial pulmonary diseases
CPT/HCPCS: 71046

== ENCOUNTER 2020-12-13 15:35 | Outpatient (CLI) | payer MEDICARE, MEDICAID | END 2020-12-13 15:36 | disposition home or self-care (01) | LOC: BICMAMMO 15:35 | PROVIDERS: ATTEND Family Medicine | DX: Z12.31 Encounter for screening mammogram for malignant neoplasm of breast (principal); Z80.3 Family history of malignant neoplasm of breast | CPT/HCPCS: 77063; 77067 ==

== ENCOUNTER 2022-01-30 14:01 | Outpatient (CLI) | payer MEDICARE, MEDICAID | END 2022-01-30 14:02 | disposition home or self-care (01) | LOC: BICCT 14:01 | PROVIDERS: ATTEND Family Medicine | DX: M54.2 Cervicalgia (principal); R29.898 Other symptoms and signs involving the musculoskeletal system; M47.816 Spondylosis without myelopathy or radiculopathy, lumbar region; M47.812 Spondylosis without myelopathy or radiculopathy, cervical region; J84.10 Pulmonary fibrosis, unspecified; Z98.890 Other specified postprocedural states | CPT/HCPCS: 72125; 72131 ==

== ENCOUNTER 2022-02-20 13:56 | Outpatient (CLI) | payer MEDICARE, MEDICAID | END 2022-02-20 13:57 | disposition home or self-care (01) | LOC: BICMAMMO 13:56 | PROVIDERS: ATTEND Family Medicine | DX: Z12.31 Encounter for screening mammogram for malignant neoplasm of breast (principal); Z13.820 Encounter for screening for osteoporosis; N95.9 Unspecified menopausal and perimenopausal disorder; Z80.3 Family history of malignant neoplasm of breast; Z91.89 Other specified personal risk factors, not elsewhere classified; M81.0 Age-related osteoporosis without current pathological fracture; Z78.0 Asymptomatic menopausal state | CPT/HCPCS: 77063; 77067; 77080 ==

== ENCOUNTER 2022-03-21 13:18 | Outpatient (CLI) | payer MEDICARE, MEDICAID | END 2022-03-21 13:19 | disposition home or self-care (01) | LOC: MRI 13:18 | PROVIDERS: ATTEND Nurse Practitioner Family | DX: M48.56XD Collapsed vertebra, not elsewhere classified, lumbar region, subsequent encounter for fracture with routine healing (principal); M47.816 Spondylosis without myelopathy or radiculopathy, lumbar region | CPT/HCPCS: 72148 ==

== ENCOUNTER 2022-04-17 13:33 | Outpatient (CLI) | payer MEDICARE, MEDICAID | END 2022-04-17 13:34 | disposition home or self-care (01) | LOC: BICULT 13:33 | PROVIDERS: ATTEND Family Medicine | DX: R31.29 Other microscopic hematuria (principal) | CPT/HCPCS: 76770 ==

== ENCOUNTER 2022-06-04 05:58 | Day surgery (SDC) | payer MEDICARE, MEDICAID ==
[2022-06-03 13:41] VITALS: BMI 30.4
[2022-06-04] MEDS ORDERED: Ipratropium/Albuterol 3 ML NEB ONE (07:33)
[2022-06-04] MEDS ORDERED: Ipratropium/Albuterol 3 ML NEB NEB SCH (07:45)
[2022-06-04] MEDS ORDERED: Lidocaine 1% PF 5 ML VIAL ONE (09:28)
[2022-06-04] MEDS ORDERED: PROPOFOL 200 MG/20 ML VIAL ONE (09:28)
== END 2022-06-04 10:40 | disposition home or self-care (01) ==
LOC: SDC 05:58
PROVIDERS: ATTEND Internal Medicine Gastroenterology
PROC: 0DBM8ZX Excision of Descending Colon, Via Natural or Artificial Opening Endoscopic, Diagnostic (ICD-10-PCS; principal; 2022-06-04)
DX: Z12.11 Encounter for screening for malignant neoplasm of colon (principal); D12.4 Benign neoplasm of descending colon; K57.30 Diverticulosis of large intestine without perforation or abscess without bleeding; K64.8 Other hemorrhoids; K21.00 Gastro-esophageal reflux disease with esophagitis, without bleeding; J84.10 Pulmonary fibrosis, unspecified; I10 Essential (primary) hypertension; E78.5 Hyperlipidemia, unspecified; I25.10 Atherosclerotic heart disease of native coronary artery without angina pectoris; Z86.010 Personal history of colon polyps; Z79.02 Long term (current) use of antithrombotics/antiplatelets; Z79.890 Hormone replacement therapy; Z79.899 Other long term (current) drug therapy; Z88.0 Allergy status to penicillin; Z88.5 Allergy status to narcotic agent; Z88.6 Allergy status to analgesic agent; Z88.8 Allergy status to other drugs, medicaments and biological substances; Z91.040 Latex allergy status; Z99.81 Dependence on supplemental oxygen
CPT/HCPCS: 88305; J2704; J7620

== ENCOUNTER 2022-07-31 13:27 | Outpatient (CLI) | payer MEDICARE, MEDICAID | END 2022-07-31 13:28 | disposition home or self-care (01) | LOC: BICMRI 13:27 | PROVIDERS: ATTEND Specialist | DX: S32.000A Wedge compression fracture of unspecified lumbar vertebra, initial encounter for closed fracture (principal); S32.031A Stable burst fracture of third lumbar vertebra, initial encounter for closed fracture; M47.816 Spondylosis without myelopathy or radiculopathy, lumbar region; M47.815 Spondylosis without myelopathy or radiculopathy, thoracolumbar region | CPT/HCPCS: 72148 ==

== ENCOUNTER 2022-10-14 22:33 | Inpatient (IN) | payer MEDICARE, MEDICAID ==
[2022-10-15] MEDS ORDERED: Benzonatate 100 MG CAP PO PRN (00:41)
[2022-10-15] MEDS ORDERED: Acetaminophen 650 MG Suppository PR PRN (00:41)
[2022-10-15] MEDS ORDERED: Nitroglycerin 0.4 MG TAB (25 Tab Bottle) SL PRN (00:41)
[2022-10-15] MEDS ORDERED: Albuterol 200 PUFF (6.7GM INHALER) INH PRN (00:41)
[2022-10-15] MEDS ORDERED: Acetaminophen 325 MG TAB PO PRN (00:41)
[2022-10-15 00:57] VITALS: BMI 25.8
[2022-10-15] MEDS ORDERED: Electrolyte Replacement Protocol 1 EACH FS SCH (01:15)
[2022-10-15 01:17] LABS: #Monocytes 0.7 thou/uL (0.11-0.59); #Neutrophils 4.7 thou/uL (1.40-6.50); %Eosinophils 0.2 % (0.0-10.0); %Lymphocytes 14.9 % (21.0-51.0); %Monocytes 11.5 % (0.0-10.0); %Neutrophils 72.8 % (42.0-75.0); Hemoglobin 13.2 g/dL (12.0-16.0); Mean Corpuscular HGB CONC 30.7 g/dL (32.0-36.0); Mean Corpuscular Hemoglobin 23.7 pg (27.0-31.0); Mean Corpuscular Volume 77.1 fl (78.0-98.0); Mean Platelet Volume 11.1 fL (7.4-10.4); Platelet Count 171 10x3/uL (130-400); RBC Distribution Width 14.6 % (11.5-14.5); Red Blood Cell (RBC) Count 5.58 mill/uL (4.20-5.40); White Blood Cell (WBC) Count 6.4 10x3/uL (4.8-10.8)
[2022-10-15 01:35] LABS: Magnesium 1.6 mg/dL (1.6-2.6)
[2022-10-15 01:36] LABS: Anion Gap 22 mmol/L (10-20); BUN (Urea Nitrogen) 9 mg/dL (9.8-20.1); Calc. Creatinine Clearance 82 mL/min (70-130); Calcium 8.5 mg/dL (7.8-10.44); Carbon Dioxide 27 mmol/L (23-31); Chloride 87 mmol/L (98-107); Delete Auto Diff?? NO; Estimated GFR 94; Glucose 73 mg/dL (83-110); Sodium 133 mmol/L (136-145)
[2022-10-15 01:44] LABS: Troponin I 1.991 ng/mL (< 0.028)
[2022-10-15] MEDS ORDERED: Magnesium Sulfate 2 GM in Sodium Chloride 0.9% 250 ML 250 ML IVPB SCH (01:45)
[2022-10-15] MEDS ORDERED: Magnesium 2 GM/50 ML(in water) 2 GM in Premix Bag 1 BAG IVPB SCH ×2 (02:00→14:00)
[2022-10-15] MEDS ORDERED: REMDESIVIR 200 MG in Sodium Chloride 0.9% 250 ML 210 ML IV SCH (02:00)
[2022-10-15] MEDS: Nitroglycerin 2% Ointment 1 INCH/1 GM Packet TOP SCH ×3 (02:11→17:46)
[2022-10-15] MEDS: Potassium Chloride 20 MEQ in Premix Bag 1 BAG IVPB SCH ×2 (02:11→04:24)
[2022-10-15 07:51] LABS: Magnesium 1.6 mg/dL (1.6-2.6); Potassium 3.2 mmol/L (3.5-5.1)
[2022-10-15 07:55] LABS: Hemoglobin A1c 4.9 % (4.0-6.0)
[2022-10-15] MEDS: Clopidogrel Bisulfate 75 MG TAB PO SCH (09:00)
[2022-10-15] MEDS: Dexamethasone 10 MG/ML VIAL SLOW IVP SCH (09:01)
[2022-10-15 13:36] LABS: Anion Gap 21 mmol/L (10-20); BUN (Urea Nitrogen) 9 mg/dL (9.8-20.1); Calc. Creatinine Clearance 80 mL/min (70-130); Calcium 8.4 mg/dL (7.8-10.44); Carbon Dioxide 26 mmol/L (23-31); Chloride 89 mmol/L (98-107); Estimated GFR 94; Glucose 80 mg/dL (83-110); Potassium 3.6 mmol/L (3.5-5.1); Sodium 132 mmol/L (136-145)
[2022-10-15] MEDS: cefTRIAXone\\ROCEPHIN 1 GM in Sodium Chloride 0.9% 100 ML IVPB SCH (16:38)
[2022-10-15] MEDS: Acetaminophen 325 MG TAB PO PRN (18:17)
[2022-10-16] MEDS: Nitroglycerin 2% Ointment 1 INCH/1 GM Packet TOP SCH ×3 (04:10→17:03)
[2022-10-16 06:05] LABS: #Monocytes 0.8 thou/uL (0.11-0.59); #Neutrophils 2.7 thou/uL (1.40-6.50); %Basophils 0.2 % (0.0-1.0); %Lymphocytes 25.3 % (21.0-51.0); %Monocytes 16.8 % (0.0-10.0); %Neutrophils 57.3 % (42.0-75.0); Hematocrit 45.2 % (36.0-47.0); Mean Corpuscular Hemoglobin 23.8 pg (27.0-31.0); Mean Corpuscular Volume 76.9 fl (78.0-98.0); Mean Platelet Volume 11.7 fL (7.4-10.4); Platelet Count 196 10x3/uL (130-400); RBC Distribution Width 15.3 % (11.5-14.5); Red Blood Cell (RBC) Count 5.88 mill/uL (4.20-5.40); White Blood Cell (WBC) Count 4.7 10x3/uL (4.8-10.8)
[2022-10-16 07:29] LABS: Anion Gap 20 mmol/L (10-20); BUN (Urea Nitrogen) 12 mg/dL (9.8-20.1); Calc. Creatinine Clearance 79 mL/min (70-130); Calcium 8.3 mg/dL (7.8-10.44); Carbon Dioxide 23 mmol/L (23-31); Chloride 88 mmol/L (98-107); Cholesterol 129 mg/dl (< 200 Desired); Estimated GFR 93; Glucose 60 mg/dL (83-110); HDL Cholesterol 26 mg/dL (>60 Neg Risk); LDL Cholesterol, Calculated 82 mg/dL; Potassium 3.4 mmol/L (3.5-5.1); Sodium 128 mmol/L (136-145); Triglycerides 107 mg/dL (Less than 150)
[2022-10-16 07:46] LABS: Troponin I 1.184 ng/mL (< 0.028)
[2022-10-16] MEDS ORDERED: Potassium Chloride 20 MEQ TAB PO SCH (08:15)
[2022-10-16] MEDS: Dexamethasone 10 MG/ML VIAL SLOW IVP SCH (10:06)
[2022-10-16] MEDS: Clopidogrel Bisulfate 75 MG TAB PO SCH (10:07)
[2022-10-16] MEDS ORDERED: Ondansetron PF 4 MG/2 ML Vial IVP PRN (12:41)
[2022-10-16] MEDS: Acetaminophen 325 MG TAB PO PRN ×2 (12:59→17:19)
[2022-10-16] MEDS: cefTRIAXone\\ROCEPHIN 1 GM in Sodium Chloride 0.9% 100 ML IVPB SCH (16:21)
[2022-10-16] MEDS: Benzonatate 100 MG CAP PO SCH (17:19)
[2022-10-16] MEDS ORDERED: Meclizine HCl 25 MG TAB PO PRN (18:20)
[2022-10-16] MEDS ORDERED: Non-Formulary Item 1 EACH (Tizanidine Hcl [Tizanidine Hcl] 2 MG Tablet) PO PRN (18:20)
[2022-10-16] MEDS: hydrOXYzine 25 MG TAB PO SCH (20:45)
[2022-10-16] MEDS: traZODone HCl 50 MG TAB PO SCH (20:45)
[2022-10-16] MEDS: Gabapentin 300 MG CAP PO SCH (20:45)
[2022-10-16] MEDS: REMDESIVIR 100 MG in Sodium Chloride 0.9% 250 ML 230 ML IV SCH (20:46)
[2022-10-16] MEDS: Cyclobenzaprine 10 MG TAB PO SCH (20:46)
[2022-10-16] MEDS ORDERED: HYDROcodone/Acetaminophen 10/325 mg Tablet PO SCH (21:15)
[2022-10-17] MEDS: HYDROcodone/Acetaminophen 10/325 mg Tablet PO SCH ×5 (00:54→23:06)
[2022-10-17] MEDS: Benzonatate 100 MG CAP PO SCH ×5 (00:54→23:06)
[2022-10-17] MEDS: Nitroglycerin 2% Ointment 1 INCH/1 GM Packet TOP SCH ×3 (02:36→19:30)
[2022-10-17 04:41] LABS: #Monocytes 0.6 thou/uL (0.11-0.59); #Neutrophils 3.8 thou/uL (1.40-6.50); %Basophils 0.2 % (0.0-1.0); %Lymphocytes 20.5 % (21.0-51.0); %Monocytes 10.2 % (0.0-10.0); %Neutrophils 68.2 % (42.0-75.0); Hematocrit 41.8 % (36.0-47.0); Hemoglobin 13.2 g/dL (12.0-16.0); Mean Corpuscular HGB CONC 31.6 g/dL (32.0-36.0); Mean Corpuscular Hemoglobin 24.2 pg (27.0-31.0); Mean Corpuscular Volume 76.6 fl (78.0-98.0); Mean Platelet Volume 11.3 fL (7.4-10.4); Platelet Count 187 10x3/uL (130-400); RBC Distribution Width 15.1 % (11.5-14.5); Red Blood Cell (RBC) Count 5.46 mill/uL (4.20-5.40); White Blood Cell (WBC) Count 5.5 10x3/uL (4.8-10.8)
[2022-10-17 05:23] LABS: Anion Gap 19 mmol/L (10-20); BUN (Urea Nitrogen) 14 mg/dL (9.8-20.1); Calc. Creatinine Clearance 73 mL/min (70-130); Calcium 8.5 mg/dL (7.8-10.44); Carbon Dioxide 27 mmol/L (23-31); Chloride 88 mmol/L (98-107); Estimated GFR 92; Glucose 63 mg/dL (83-110); Potassium 3.5 mmol/L (3.5-5.1); Sodium 130 mmol/L (136-145)
[2022-10-17] MEDS: Levothyroxine 175 MCG TAB PO SCH (05:50)
[2022-10-17] MEDS ORDERED: Potassium Chloride 20 MEQ TAB PO SCH (08:00)
[2022-10-17] MEDS: Rosuvastatin 10 MG TAB PO SCH (08:54)
[2022-10-17] MEDS: dilTIAZem CD 120 MG CAP PO SCH (08:54)
[2022-10-17] MEDS: Clopidogrel Bisulfate 75 MG TAB PO SCH (08:55)
[2022-10-17] MEDS: Cyclobenzaprine 10 MG TAB PO SCH ×3 (08:57→20:33)
[2022-10-17] MEDS: Gabapentin 300 MG CAP PO SCH ×3 (08:57→20:33)
[2022-10-17] MEDS: hydrOXYzine 25 MG TAB PO SCH ×3 (08:58→20:32)
[2022-10-17] MEDS: Dexamethasone 10 MG/ML VIAL SLOW IVP SCH (09:01)
[2022-10-17] MEDS ORDERED: Mycophenolate 250 MG CAP PO SCH (09:30)
[2022-10-17] MEDS: cefTRIAXone\\ROCEPHIN 1 GM in Sodium Chloride 0.9% 100 ML IVPB SCH (17:14)
[2022-10-17] MEDS: traZODone HCl 50 MG TAB PO SCH (20:32)
[2022-10-17] MEDS: Mycophenolate 250 MG CAP PO SCH (20:44)
[2022-10-17] MEDS: REMDESIVIR 100 MG in Sodium Chloride 0.9% 250 ML 230 ML IV SCH (21:25)
[2022-10-18] MEDS: Nitroglycerin 2% Ointment 1 INCH/1 GM Packet TOP SCH ×3 (03:20→18:06)
[2022-10-18] MEDS: HYDROcodone/Acetaminophen 10/325 mg Tablet PO SCH ×4 (05:06→23:57)
[2022-10-18] MEDS: Levothyroxine 175 MCG TAB PO SCH (05:07)
[2022-10-18] MEDS: Benzonatate 100 MG CAP PO SCH ×4 (05:07→23:57)
[2022-10-18] MEDS: Mycophenolate 250 MG CAP PO SCH ×2 (08:16→21:08)
[2022-10-18] MEDS: Gabapentin 300 MG CAP PO SCH ×3 (08:18→20:48)
[2022-10-18] MEDS: Rosuvastatin 10 MG TAB PO SCH (08:21)
[2022-10-18] MEDS: Cyclobenzaprine 10 MG TAB PO SCH ×3 (08:23→20:49)
[2022-10-18] MEDS: Clopidogrel Bisulfate 75 MG TAB PO SCH (08:23)
[2022-10-18] MEDS: hydrOXYzine 25 MG TAB PO SCH ×3 (08:23→20:50)
[2022-10-18] MEDS: Dexamethasone 10 MG/ML VIAL SLOW IVP SCH (09:57)
[2022-10-18] MEDS: dilTIAZem CD 120 MG CAP PO SCH (10:01)
[2022-10-18] MEDS: cefTRIAXone\\ROCEPHIN 1 GM in Sodium Chloride 0.9% 100 ML IVPB SCH (15:37)
[2022-10-18 17:21] LABS: #Monocytes 0.5 thou/uL (0.11-0.59); #Neutrophils 6.8 thou/uL (1.40-6.50); %Basophils 0.2 % (0.0-1.0); %Monocytes 5.8 % (0.0-10.0); %Neutrophils 79.2 % (42.0-75.0); Hematocrit 39.8 % (36.0-47.0); Hemoglobin 12.6 g/dL (12.0-16.0); Mean Corpuscular HGB CONC 31.7 g/dL (32.0-36.0); Mean Corpuscular Volume 79.1 fl (78.0-98.0); Mean Platelet Volume 11.5 fL (7.4-10.4); Platelet Count 191 10x3/uL (130-400); RBC Distribution Width 15.8 % (11.5-14.5); Red Blood Cell (RBC) Count 5.03 mill/uL (4.20-5.40); White Blood Cell (WBC) Count 8.6 10x3/uL (4.8-10.8)
[2022-10-18 17:25] LABS: Anion Gap 11 mmol/L (10-20); BUN (Urea Nitrogen) 18 mg/dL (9.8-20.1); Calc. Creatinine Clearance 78 mL/min (70-130); Calcium 8.5 mg/dL (7.8-10.44); Carbon Dioxide 32 mmol/L (23-31); Chloride 93 mmol/L (98-107); Estimated GFR 93; Glucose 80 mg/dL (83-110); Potassium 3.9 mmol/L (3.5-5.1); Sodium 132 mmol/L (136-145)
[2022-10-18] MEDS: REMDESIVIR 100 MG in Sodium Chloride 0.9% 250 ML 230 ML IV SCH (20:48)
[2022-10-18] MEDS: traZODone HCl 50 MG TAB PO SCH (20:50)
[2022-10-19] MEDS: Nitroglycerin 2% Ointment 1 INCH/1 GM Packet TOP SCH ×3 (02:53→17:03)
[2022-10-19] MEDS: Benzonatate 100 MG CAP PO SCH ×3 (06:04→17:15)
[2022-10-19] MEDS: HYDROcodone/Acetaminophen 10/325 mg Tablet PO SCH ×3 (06:04→17:15)
[2022-10-19] MEDS: Levothyroxine 175 MCG TAB PO SCH (06:04)
[2022-10-19 08:04] LABS: Anion Gap 13 mmol/L (10-20); BUN (Urea Nitrogen) 16 mg/dL (9.8-20.1); Calc. Creatinine Clearance 84 mL/min (70-130); Calcium 8.2 mg/dL (7.8-10.44); Carbon Dioxide 31 mmol/L (23-31); Chloride 96 mmol/L (98-107); Estimated GFR 95; Glucose 60 mg/dL (83-110); Potassium 5.5 mmol/L (3.5-5.1); Sodium 134 mmol/L (136-145)
[2022-10-19] MEDS: Clopidogrel Bisulfate 75 MG TAB PO SCH (08:38)
[2022-10-19] MEDS: Cyclobenzaprine 10 MG TAB PO SCH ×3 (08:38→21:20)
[2022-10-19] MEDS: hydrOXYzine 25 MG TAB PO SCH ×3 (08:38→21:20)
[2022-10-19] MEDS: Rosuvastatin 10 MG TAB PO SCH (08:39)
[2022-10-19] MEDS: Gabapentin 300 MG CAP PO SCH ×3 (08:39→21:19)
[2022-10-19] MEDS: Dexamethasone 10 MG/ML VIAL SLOW IVP SCH (08:39)
[2022-10-19] MEDS: dilTIAZem CD 120 MG CAP PO SCH (08:39)
[2022-10-19] MEDS: Mycophenolate 250 MG CAP PO SCH ×2 (08:40→21:17)
[2022-10-19 09:02] LABS: #Monocytes 0.6 thou/uL (0.11-0.59); #Neutrophils 5.3 thou/uL (1.40-6.50); %Eosinophils 0.1 % (0.0-10.0); %Lymphocytes 24.6 % (21.0-51.0); %Monocytes 7.1 % (0.0-10.0); %Neutrophils 67.8 % (42.0-75.0); Hematocrit 39.6 % (36.0-47.0); Hemoglobin 12.3 g/dL (12.0-16.0); Mean Corpuscular HGB CONC 31.1 g/dL (32.0-36.0); Mean Corpuscular Hemoglobin 26.1 pg (27.0-31.0); Mean Platelet Volume 11.2 fL (7.4-10.4); Platelet Count 190 10x3/uL (130-400); RBC Distribution Width 18.7 % (11.5-14.5); Red Blood Cell (RBC) Count 4.71 mill/uL (4.20-5.40); White Blood Cell (WBC) Count 7.8 10x3/uL (4.8-10.8)
[2022-10-19 09:11] LABS: Mean Corpuscular Volume 84.1 fl (78.0-98.0)
[2022-10-19] MEDS ORDERED: Electrolyte Replacement Protocol FS PRN (11:00)
[2022-10-19] MEDS: cefTRIAXone\\ROCEPHIN 1 GM in Sodium Chloride 0.9% 100 ML IVPB SCH (15:46)
[2022-10-19] MEDS: REMDESIVIR 100 MG in Sodium Chloride 0.9% 250 ML 230 ML IV SCH (21:17)
[2022-10-19] MEDS: traZODone HCl 50 MG TAB PO SCH (21:19)
[2022-10-20] MEDS: Benzonatate 100 MG CAP PO SCH ×4 (01:28→17:13)
[2022-10-20] MEDS: HYDROcodone/Acetaminophen 10/325 mg Tablet PO SCH ×4 (01:28→17:13)
[2022-10-20] MEDS: Nitroglycerin 2% Ointment 1 INCH/1 GM Packet TOP SCH ×3 (02:31→17:01)
[2022-10-20] MEDS: Levothyroxine 175 MCG TAB PO SCH (06:06)
[2022-10-20] MEDS: Mycophenolate 250 MG CAP PO SCH ×2 (08:25→20:36)
[2022-10-20] MEDS: Dexamethasone 10 MG/ML VIAL SLOW IVP SCH (08:25)
[2022-10-20] MEDS: Rosuvastatin 10 MG TAB PO SCH (08:26)
[2022-10-20] MEDS: Cyclobenzaprine 10 MG TAB PO SCH ×3 (08:26→20:35)
[2022-10-20] MEDS: Gabapentin 300 MG CAP PO SCH ×3 (08:26→20:35)
[2022-10-20] MEDS: hydrOXYzine 25 MG TAB PO SCH ×3 (08:26→20:36)
[2022-10-20] MEDS: dilTIAZem CD 120 MG CAP PO SCH (08:27)
[2022-10-20] MEDS: Clopidogrel Bisulfate 75 MG TAB PO SCH (08:27)
[2022-10-20] MEDS: cefTRIAXone\\ROCEPHIN 1 GM in Sodium Chloride 0.9% 100 ML IVPB SCH (16:07)
[2022-10-20] MEDS: traZODone HCl 50 MG TAB PO SCH (20:36)
[2022-10-21] MEDS: Benzonatate 100 MG CAP PO SCH ×4 (00:25→17:17)
[2022-10-21] MEDS: HYDROcodone/Acetaminophen 10/325 mg Tablet PO SCH ×4 (00:25→17:17)
[2022-10-21] MEDS: Nitroglycerin 2% Ointment 1 INCH/1 GM Packet TOP SCH ×3 (01:17→16:35)
[2022-10-21] MEDS: Levothyroxine 175 MCG TAB PO SCH (05:27)
[2022-10-21] MEDS: Mycophenolate 250 MG CAP PO SCH ×2 (09:33→21:37)
[2022-10-21] MEDS: Cyclobenzaprine 10 MG TAB PO SCH ×3 (09:34→21:37)
[2022-10-21] MEDS: hydrOXYzine 25 MG TAB PO SCH ×3 (09:34→21:37)
[2022-10-21] MEDS: Gabapentin 300 MG CAP PO SCH ×3 (09:34→21:36)
[2022-10-21] MEDS: dilTIAZem CD 120 MG CAP PO SCH (09:34)
[2022-10-21] MEDS: Ascorbic Acid 500 mg Chewable Tablet PO SCH (09:34)
[2022-10-21] MEDS: Zinc Sulfate 220 MG CAP PO SCH (09:34)
[2022-10-21] MEDS: Clopidogrel Bisulfate 75 MG TAB PO SCH (09:34)
[2022-10-21] MEDS: Rosuvastatin 10 MG TAB PO SCH (09:35)
[2022-10-21] MEDS: Dexamethasone 10 MG/ML VIAL SLOW IVP SCH (09:35)
[2022-10-21] MEDS: cefTRIAXone\\ROCEPHIN 1 GM in Sodium Chloride 0.9% 100 ML IVPB SCH (14:47)
[2022-10-21] MEDS: traZODone HCl 50 MG TAB PO SCH (21:37)
[2022-10-22] MEDS: HYDROcodone/Acetaminophen 10/325 mg Tablet PO SCH ×4 (00:17→17:51)
[2022-10-22] MEDS: Benzonatate 100 MG CAP PO SCH ×4 (00:17→17:48)
[2022-10-22] MEDS: Nitroglycerin 2% Ointment 1 INCH/1 GM Packet TOP SCH ×3 (00:53→17:50)
[2022-10-22] MEDS: Levothyroxine 175 MCG TAB PO SCH (05:38)
[2022-10-22] MEDS: Mycophenolate 250 MG CAP PO SCH ×2 (08:53→20:23)
[2022-10-22] MEDS: Gabapentin 300 MG CAP PO SCH ×3 (08:54→20:23)
[2022-10-22] MEDS: Dexamethasone 10 MG/ML VIAL SLOW IVP SCH (08:54)
[2022-10-22] MEDS: Clopidogrel Bisulfate 75 MG TAB PO SCH (08:57)
[2022-10-22] MEDS: Rosuvastatin 10 MG TAB PO SCH (08:57)
[2022-10-22] MEDS: Ascorbic Acid 500 mg Chewable Tablet PO SCH (08:57)
[2022-10-22] MEDS: dilTIAZem CD 120 MG CAP PO SCH (08:57)
[2022-10-22] MEDS: Cyclobenzaprine 10 MG TAB PO SCH ×3 (08:57→20:24)
[2022-10-22] MEDS: Zinc Sulfate 220 MG CAP PO SCH (08:58)
[2022-10-22] MEDS: hydrOXYzine 25 MG TAB PO SCH ×3 (09:07→20:24)
[2022-10-22] MEDS: cefTRIAXone\\ROCEPHIN 1 GM in Sodium Chloride 0.9% 100 ML IVPB SCH (15:16)
[2022-10-22] MEDS: traZODone HCl 50 MG TAB PO SCH (20:23)
[2022-10-23] MEDS: HYDROcodone/Acetaminophen 10/325 mg Tablet PO SCH ×4 (00:34→17:35)
[2022-10-23] MEDS: Benzonatate 100 MG CAP PO SCH ×4 (00:34→17:35)
[2022-10-23] MEDS: Nitroglycerin 2% Ointment 1 INCH/1 GM Packet TOP SCH ×3 (00:52→17:33)
[2022-10-23] MEDS: Levothyroxine 175 MCG TAB PO SCH (06:42)
[2022-10-23] MEDS: Mycophenolate 250 MG CAP PO SCH ×2 (09:38→20:48)
[2022-10-23] MEDS: hydrOXYzine 25 MG TAB PO SCH ×3 (09:38→20:48)
[2022-10-23] MEDS: Rosuvastatin 10 MG TAB PO SCH (09:39)
[2022-10-23] MEDS: Ascorbic Acid 500 mg Chewable Tablet PO SCH (09:39)
[2022-10-23] MEDS: Gabapentin 300 MG CAP PO SCH ×3 (09:39→20:47)
[2022-10-23] MEDS: Clopidogrel Bisulfate 75 MG TAB PO SCH (09:39)
[2022-10-23] MEDS: Zinc Sulfate 220 MG CAP PO SCH (09:40)
[2022-10-23] MEDS: Cyclobenzaprine 10 MG TAB PO SCH ×3 (09:40→20:48)
[2022-10-23] MEDS: Dexamethasone 10 MG/ML VIAL SLOW IVP SCH (09:40)
[2022-10-23] MEDS: dilTIAZem CD 120 MG CAP PO SCH (09:42)
[2022-10-23 12:27] LABS: #Monocytes 0.3 thou/uL (0.11-0.59); #Neutrophils 7.6 thou/uL (1.40-6.50); %Basophils 0.1 % (0.0-1.0); %Lymphocytes 8.6 % (21.0-51.0); %Monocytes 3.2 % (0.0-10.0); %Neutrophils 86.8 % (42.0-75.0); Hematocrit 34.6 % (36.0-47.0); Hemoglobin 12.2 g/dL (12.0-16.0); Mean Corpuscular HGB CONC 35.3 g/dL (32.0-36.0); Mean Corpuscular Hemoglobin 30.4 pg (27.0-31.0); Mean Corpuscular Volume 86.3 fl (78.0-98.0); Mean Platelet Volume 11.6 fL (7.4-10.4); Platelet Count 252 10x3/uL (130-400); RBC Distribution Width 19.9 % (11.5-14.5); Red Blood Cell (RBC) Count 4.01 mill/uL (4.20-5.40); White Blood Cell (WBC) Count 8.8 10x3/uL (4.8-10.8)
[2022-10-23 13:01] LABS: Anion Gap 11 mmol/L (10-20); BUN (Urea Nitrogen) 20 mg/dL (9.8-20.1); Calc. Creatinine Clearance 83 mL/min (70-130); Calcium 8.7 mg/dL (7.8-10.44); Carbon Dioxide 32 mmol/L (23-31); Chloride 97 mmol/L (98-107); Estimated GFR 95; Glucose 93 mg/dL (83-110); Potassium 4.5 mmol/L (3.5-5.1); Sodium 135 mmol/L (136-145)
[2022-10-23] MEDS: cefTRIAXone\\ROCEPHIN 1 GM in Sodium Chloride 0.9% 100 ML IVPB SCH (15:30)
[2022-10-23] MEDS: Bisacodyl 5 MG TAB PO PRN (15:31)
[2022-10-23] MEDS: traZODone HCl 50 MG TAB PO SCH (20:48)
[2022-10-24] MEDS: HYDROcodone/Acetaminophen 10/325 mg Tablet PO SCH ×4 (00:15→18:05)
[2022-10-24] MEDS: Benzonatate 100 MG CAP PO SCH ×5 (00:17→18:05)
[2022-10-24] MEDS: Nitroglycerin 2% Ointment 1 INCH/1 GM Packet TOP SCH ×3 (02:03→18:21)
[2022-10-24 05:50] LABS: Anion Gap 9 mmol/L (10-20); BUN (Urea Nitrogen) 21 mg/dL (9.8-20.1); Calc. Creatinine Clearance 84 mL/min (70-130); Calcium 8.7 mg/dL (7.8-10.44); Carbon Dioxide 30 mmol/L (23-31); Chloride 98 mmol/L (98-107); Estimated GFR 95; Glucose 90 mg/dL (83-110); Potassium 4.4 mmol/L (3.5-5.1); Sodium 133 mmol/L (136-145)
[2022-10-24 05:53] LABS: #Monocytes 0.5 thou/uL (0.11-0.59); #Neutrophils 7.6 thou/uL (1.40-6.50); %Basophils 0.1 % (0.0-1.0); %Monocytes 5.2 % (0.0-10.0); Hematocrit 40.3 % (36.0-47.0); Hemoglobin 12.2 g/dL (12.0-16.0); Mean Corpuscular HGB CONC 30.3 g/dL (32.0-36.0); Mean Corpuscular Hemoglobin 23.7 pg (27.0-31.0); Mean Platelet Volume 11.1 fL (7.4-10.4); Platelet Count 248 10x3/uL (130-400); RBC Distribution Width 15.7 % (11.5-14.5); Red Blood Cell (RBC) Count 5.15 mill/uL (4.20-5.40); White Blood Cell (WBC) Count 9.6 10x3/uL (4.8-10.8)
[2022-10-24 05:55] LABS: Mean Corpuscular Volume 78.3 fl (78.0-98.0)
[2022-10-24] MEDS: Levothyroxine 175 MCG TAB PO SCH (06:09)
[2022-10-24] MEDS: Rosuvastatin 10 MG TAB PO SCH (08:53)
[2022-10-24] MEDS: Ascorbic Acid 500 mg Chewable Tablet PO SCH (08:54)
[2022-10-24] MEDS: dilTIAZem CD 120 MG CAP PO SCH (08:54)
[2022-10-24] MEDS: Gabapentin 300 MG CAP PO SCH ×3 (08:54→20:43)
[2022-10-24] MEDS: Clopidogrel Bisulfate 75 MG TAB PO SCH (08:54)
[2022-10-24] MEDS: Zinc Sulfate 220 MG CAP PO SCH (08:54)
[2022-10-24] MEDS: Cyclobenzaprine 10 MG TAB PO SCH ×3 (08:54→20:43)
[2022-10-24] MEDS: Dexamethasone 10 MG/ML VIAL SLOW IVP SCH (08:55)
[2022-10-24] MEDS: hydrOXYzine 25 MG TAB PO SCH ×3 (08:55→20:44)
[2022-10-24] MEDS: Mycophenolate 250 MG CAP PO SCH ×2 (10:52→20:42)
[2022-10-24] MEDS: Bisacodyl 5 MG TAB PO PRN (11:15)
[2022-10-24] MEDS: cefTRIAXone\\ROCEPHIN 1 GM in Sodium Chloride 0.9% 100 ML IVPB SCH (14:17)
[2022-10-24] MEDS: traZODone HCl 50 MG TAB PO SCH (20:43)
[2022-10-25] MEDS: HYDROcodone/Acetaminophen 10/325 mg Tablet PO SCH ×4 (00:04→17:01)
[2022-10-25] MEDS: Benzonatate 100 MG CAP PO SCH ×4 (00:04→17:01)
[2022-10-25] MEDS: Nitroglycerin 2% Ointment 1 INCH/1 GM Packet TOP SCH ×3 (02:09→17:08)
[2022-10-25] MEDS: Levothyroxine 175 MCG TAB PO SCH (05:53)
[2022-10-25 07:18] LABS: #Monocytes 0.4 thou/uL (0.11-0.59); #Neutrophils 6.9 thou/uL (1.40-6.50); %Lymphocytes 12.5 % (21.0-51.0); %Monocytes 4.9 % (0.0-10.0); %Neutrophils 80.4 % (42.0-75.0); Hematocrit 37.7 % (36.0-47.0); Hemoglobin 11.7 g/dL (12.0-16.0); Mean Corpuscular Hemoglobin 24.8 pg (27.0-31.0); Mean Corpuscular Volume 79.9 fl (78.0-98.0); Platelet Count 230 10x3/uL (130-400); RBC Distribution Width 15.2 % (11.5-14.5); Red Blood Cell (RBC) Count 4.72 mill/uL (4.20-5.40); White Blood Cell (WBC) Count 8.5 10x3/uL (4.8-10.8)
[2022-10-25 07:22] LABS: Anion Gap 9 mmol/L (10-20); BUN (Urea Nitrogen) 19 mg/dL (9.8-20.1); Calc. Creatinine Clearance 90 mL/min (70-130); Calcium 8.6 mg/dL (7.8-10.44); Carbon Dioxide 31 mmol/L (23-31); Chloride 97 mmol/L (98-107); Estimated GFR 96; Glucose 86 mg/dL (83-110); Potassium 3.8 mmol/L (3.5-5.1); Sodium 133 mmol/L (136-145)
[2022-10-25] MEDS: Clopidogrel Bisulfate 75 MG TAB PO SCH (08:24)
[2022-10-25] MEDS: Dexamethasone 10 MG/ML VIAL SLOW IVP SCH (08:24)
[2022-10-25] MEDS: Rosuvastatin 10 MG TAB PO SCH (08:24)
[2022-10-25] MEDS: dilTIAZem CD 120 MG CAP PO SCH (08:24)
[2022-10-25] MEDS: Gabapentin 300 MG CAP PO SCH ×2 (08:25→16:05)
[2022-10-25] MEDS: Zinc Sulfate 220 MG CAP PO SCH (08:25)
[2022-10-25] MEDS: Cyclobenzaprine 10 MG TAB PO SCH ×2 (08:25→16:05)
[2022-10-25] MEDS: Ascorbic Acid 500 mg Chewable Tablet PO SCH (08:25)
[2022-10-25] MEDS: Mycophenolate 250 MG CAP PO SCH (08:34)
[2022-10-25] MEDS: hydrOXYzine 25 MG TAB PO SCH ×2 (08:34→16:06)
[2022-10-25] MEDS: Bisacodyl 5 MG TAB PO PRN (11:32)
[2022-10-25 12:14] VITALS: BP 108/70; TEMP 98.4
[2022-10-25] MEDS: cefTRIAXone\\ROCEPHIN 1 GM in Sodium Chloride 0.9% 100 ML IVPB SCH (16:06)
== END 2022-10-25 17:08 | disposition swing bed (61) | DRG 177 ==
LOC: 2SE 22:33 → UNDOADMIN 22:33 → 2SE 10-15 11:00 → 2NO 10-15 23:21 → T4-B 10-18 14:12
PROVIDERS: ADMIT Family Medicine; ATTEND Internal Medicine
PROC: 8E0ZXY6 Isolation (ICD-10-PCS; principal; 2022-10-15)
PROC: XW033E5 Introduction of Remdesivir Anti-infective into Peripheral Vein, Percutaneous Approach, New Technology Group 5 (ICD-10-PCS; 2022-10-15)
DX: U07.1 COVID-19 (principal); G93.41 Metabolic encephalopathy; I21.A1 Myocardial infarction type 2; J96.21 Acute and chronic respiratory failure with hypoxia; J12.82 Pneumonia due to coronavirus disease 2019; N39.0 Urinary tract infection, site not specified; J44.1 Chronic obstructive pulmonary disease with (acute) exacerbation; E87.1 Hypo-osmolality and hyponatremia; I25.10 Atherosclerotic heart disease of native coronary artery without angina pectoris; I10 Essential (primary) hypertension; E78.5 Hyperlipidemia, unspecified; E11.9 Type 2 diabetes mellitus without complications; F17.210 Nicotine dependence, cigarettes, uncomplicated; J84.112 Idiopathic pulmonary fibrosis; E87.5 Hyperkalemia; E87.6 Hypokalemia; E03.9 Hypothyroidism, unspecified; Z88.8 Allergy status to other drugs, medicaments and biological substances; Z88.6 Allergy status to analgesic agent; Z88.0 Allergy status to penicillin; Z91.040 Latex allergy status; Z79.02 Long term (current) use of antithrombotics/antiplatelets; Z79.899 Other long term (current) drug therapy; Z86.73 Personal history of transient ischemic attack (TIA), and cerebral infarction without residual deficits; Z99.81 Dependence on supplemental oxygen; I25.2 Old myocardial infarction; Z87.442 Personal history of urinary calculi; Z90.710 Acquired absence of both cervix and uterus; Z90.721 Acquired absence of ovaries, unilateral; Z82.49 Family history of ischemic heart disease and other diseases of the circulatory system; Z79.82 Long term (current) use of aspirin; Z79.890 Hormone replacement therapy
CPT/HCPCS: 36415; 71045; 80048; 80061; 83036; 83735; 84145; 84443; 84484; 85025; 85379; 86140; 97139; J0248; J0696; J1100; J1650; J2405; J3475; J3480; J3490; J7050; J7517

== ENCOUNTER 2022-11-20 13:12 | Outpatient (CLI) | payer MEDICARE, MEDICAID | END 2022-11-20 13:13 | disposition home or self-care (01) | LOC: SCSMRI 13:12 | PROVIDERS: ATTEND Specialist | DX: M80.08XA Age-related osteoporosis with current pathological fracture, vertebra(e), initial encounter for fracture (principal); S32.000A Wedge compression fracture of unspecified lumbar vertebra, initial encounter for closed fracture; M70.62 Trochanteric bursitis, left hip; M51.36 Other intervertebral disc degeneration, lumbar region; M51.37 Other intervertebral disc degeneration, lumbosacral region; R60.0 Localized edema; M43.9 Deforming dorsopathy, unspecified | CPT/HCPCS: 72148; 72195 ==

== ENCOUNTER 2022-12-09 15:26 | Inpatient (IN) | payer MEDICARE, MEDICAID ==
[~2022-12-09 15:26] MED LIST: Iopamidol-370 76% 500 ML MDV (1 ML CHARGE) ONE
[2022-12-09] MEDS ORDERED: Magnesium 2 GM/50 ML BAG (IN WATER) ONE (16:54)
[2022-12-09] MEDS ORDERED: Ipratropium/Albuterol 3 ML NEB ONE (17:21)
[2022-12-09 18:28] LABS: #Monocytes 0.2 thou/uL (0.11-0.59); %Basophils 0.1 % (0.0-1.0); %Eosinophils 0.1 % (0.0-10.0); %Lymphocytes 6.4 % (21.0-51.0); %Monocytes 2.1 % (0.0-10.0); %Neutrophils 90.7 % (42.0-75.0); Hematocrit 29.1 % (36.0-47.0); Hemoglobin 9.7 g/dL (12.0-16.0); Mean Corpuscular HGB CONC 33.3 g/dL (32.0-36.0); Mean Corpuscular Hemoglobin 29.4 pg (27.0-31.0); Mean Corpuscular Volume 88.2 fl (78.0-98.0); Mean Platelet Volume 11.8 fL (7.4-10.4); Platelet Count 190 10x3/uL (130-400); RBC Distribution Width 17.5 % (11.5-14.5); White Blood Cell (WBC) Count 8.9 10x3/uL (4.8-10.8)
[2022-12-09] MEDS ORDERED: Doxycycline 100 MG CAP ONE (18:39)
[2022-12-09] MEDS ORDERED: Azithromycin 500 MG VIAL ONE (18:39)
[2022-12-09 18:54] LABS: ALT (SGPT) Less than 7 U/L (8-55); AST (SGOT) 12 U/L (5-34); Albumin 3.2 g/dL (3.4-4.8); Alkaline Phosphatase 63 U/L (40-110); Anion Gap 19 mmol/L (10-20); BUN (Urea Nitrogen) 10 mg/dL (9.8-20.1); Bilirubin, Total 0.8 mg/dL (0.2-1.2); Calc. Creatinine Clearance 0 mL/min (70-130); Calcium 8.4 mg/dL (7.8-10.44); Carbon Dioxide 24 mmol/L (23-31); Chloride 97 mmol/L (98-107); Estimated GFR 93; Globulin 2.5 g/dL (2.4-3.5); Glucose 100 mg/dL (83-110); Protein, Total 5.7 g/dL (5.8-8.1); Sodium 137 mmol/L (136-145)
[2022-12-09 18:57] LABS: Troponin I 0.038 ng/mL (< 0.028)
[2022-12-09] MEDS ORDERED: HYDROcodone/Acetaminophen 10/325 mg Tablet ONE (19:33)
[2022-12-09] MEDS ORDERED: Furosemide 20 MG/2 ML VIAL ONE (19:37)
[2022-12-09] MEDS ORDERED: Acetaminophen 325 MG TAB PO PRN (21:13)
[2022-12-09] MEDS ORDERED: Ondansetron ODT 4 MG TAB PO PRN (21:13)
[2022-12-09] MEDS ORDERED: Acetaminophen 650 MG Suppository PR PRN (21:13)
[2022-12-09] MEDS ORDERED: Ondansetron PF 4 MG/2 ML Vial IVP PRN (21:13)
[2022-12-09] MEDS ORDERED: Ipratropium/Albuterol 3 ML NEB NEB PRN (21:15)
[2022-12-09 22:18] VITALS: BMI 25.4
[2022-12-09] MEDS ORDERED: Potassium Chloride 40 MEQ in Premix 1 BAG IVPB SCH (22:30)
[2022-12-09] MEDS ORDERED: Electrolyte Replacement Protocol 1 EACH FS PRN (22:30)
[2022-12-09 23:30] LABS: Anion Gap 20 mmol/L (10-20); BUN (Urea Nitrogen) 8 mg/dL (9.8-20.1); Calc. Creatinine Clearance 72 mL/min (70-130); Calcium 8.7 mg/dL (7.8-10.44); Carbon Dioxide 25 mmol/L (23-31); Chloride 96 mmol/L (98-107); Estimated GFR 92; Glucose 125 mg/dL (83-110); Magnesium 1.8 mg/dL (1.6-2.6); Potassium 3.7 mmol/L (3.5-5.1); Sodium 137 mmol/L (136-145)
[2022-12-09 23:41] LABS: Troponin I 0.054 ng/mL (< 0.028)
[2022-12-10] MEDS ORDERED: Potassium Chloride 20 MEQ/100 ML PREMIX BAG ONE ×2 (00:21→04:53)
[2022-12-10] MEDS: Ipratropium/Albuterol 3 ML NEB NEB SCH ×7 (00:22→23:43)
[2022-12-10] MEDS ORDERED: Ipratropium/Albuterol 3 ML NEB ONE ×3 (00:25→12:24)
[2022-12-10] MEDS: Potassium Chloride 20 MEQ in Premix 1 BAG IVPB SCH ×2 (00:28→05:07)
[2022-12-10] MEDS ORDERED: Acetaminophen 325 MG TAB ONE (05:14)
[2022-12-10 05:15] LABS: #Monocytes 0.2 thou/uL (0.11-0.59); #Neutrophils 3.8 thou/uL (1.40-6.50); %Basophils 0.2 % (0.0-1.0); %Lymphocytes 15.4 % (21.0-51.0); %Monocytes 3.4 % (0.0-10.0); %Neutrophils 80.4 % (42.0-75.0); Hemoglobin 9.2 g/dL (12.0-16.0); Mean Corpuscular HGB CONC 32.9 g/dL (32.0-36.0); Mean Corpuscular Hemoglobin 28.8 pg (27.0-31.0); Mean Corpuscular Volume 87.5 fl (78.0-98.0); Mean Platelet Volume 12.4 fL (7.4-10.4); Platelet Count 200 10x3/uL (130-400); RBC Distribution Width 17.5 % (11.5-14.5); White Blood Cell (WBC) Count 4.7 10x3/uL (4.8-10.8)
[2022-12-10 05:42] LABS: Anion Gap 20 mmol/L (10-20); BUN (Urea Nitrogen) 8 mg/dL (9.8-20.1); Calc. Creatinine Clearance 79 mL/min (70-130); Calcium 8.6 mg/dL (7.8-10.44); Carbon Dioxide 22 mmol/L (23-31); Chloride 98 mmol/L (98-107); Estimated GFR 95; Glucose 116 mg/dL (83-110); Magnesium 1.5 mg/dL (1.6-2.6); Potassium 3.7 mmol/L (3.5-5.1); Sodium 136 mmol/L (136-145)
[2022-12-10] MEDS ORDERED: HYDROcodone/Acetaminophen 10/325 mg Tablet ONE ×2 (07:02→11:53)
[2022-12-10] MEDS: HYDROcodone/Acetaminophen 10/325 mg Tablet PO SCH ×3 (07:05→17:44)
[2022-12-10] MEDS ORDERED: Magnesium 2 GM/50 ML(in water) 2 GM in Premix 1 BAG IVPB SCH (08:00)
[2022-12-10] MEDS ORDERED: Magnesium 2 GM/50 ML BAG (IN WATER) ONE ×2 (09:16→11:45)
[2022-12-10] MEDS ORDERED: methylPREDNISolone Sod Succ 40 MG VIAL ONE (09:16)
[2022-12-10] MEDS: Doxycycline 100 MG in Sodium Chloride 0.9% 100 ML IVPB SCH ×2 (10:30→22:39)
[2022-12-10] MEDS: methylPREDNISolone Sod Succ 40 MG VIAL IVP SCH (10:31)
[2022-12-10] MEDS ORDERED: HYDROcodone/Acetaminophen 5/325 mg Tablet ONE (11:45)
[2022-12-10] MEDS ORDERED: Furosemide 40 MG/4 ML VIAL SLOW IVP SCH (12:00)
[2022-12-10] MEDS ORDERED: Furosemide 40 MG/4 ML VIAL ONE (12:11)
[2022-12-10] MEDS ORDERED: Gabapentin 300 MG CAP PO SCH (22:15)
[2022-12-10] MEDS ORDERED: traZODone HCl 50 MG TAB PO SCH (22:15)
[2022-12-10] MEDS ORDERED: Mycophenolate 250 MG CAP PO SCH (22:15)
[2022-12-11] MEDS: HYDROcodone/Acetaminophen 10/325 mg Tablet PO SCH ×4 (00:42→18:05)
[2022-12-11] MEDS: Ipratropium/Albuterol 3 ML NEB NEB SCH ×6 (02:21→22:27)
[2022-12-11] MEDS ORDERED: Furosemide 40 MG/4 ML VIAL SLOW IVP SCH (06:00)
[2022-12-11 06:34] LABS: #Monocytes 0.6 thou/uL (0.11-0.59); #Neutrophils 6.9 thou/uL (1.40-6.50); %Basophils 0.1 % (0.0-1.0); %Lymphocytes 17.3 % (21.0-51.0); %Monocytes 6.4 % (0.0-10.0); %Neutrophils 75.8 % (42.0-75.0); Hematocrit 26.4 % (36.0-47.0); Hemoglobin 8.2 g/dL (12.0-16.0); Mean Corpuscular HGB CONC 31.1 g/dL (32.0-36.0); Mean Corpuscular Hemoglobin 25.9 pg (27.0-31.0); Mean Corpuscular Volume 83.5 fl (78.0-98.0); Mean Platelet Volume 12.1 fL (7.4-10.4); Platelet Count 224 10x3/uL (130-400); RBC Distribution Width 16.6 % (11.5-14.5); Red Blood Cell (RBC) Count 3.16 mill/uL (4.20-5.40); White Blood Cell (WBC) Count 9.2 10x3/uL (4.8-10.8)
[2022-12-11 07:01] LABS: ALT (SGPT) 7 U/L (8-55); AST (SGOT) 9 U/L (5-34); Albumin 3.3 g/dL (3.4-4.8); Alkaline Phosphatase 53 U/L (40-110); Anion Gap 12 mmol/L (10-20); BUN (Urea Nitrogen) 11 mg/dL (9.8-20.1); Bilirubin, Total 0.4 mg/dL (0.2-1.2); Calc. Creatinine Clearance 86 mL/min (70-130); Carbon Dioxide 32 mmol/L (23-31); Chloride 97 mmol/L (98-107); Estimated GFR 96; Globulin 2.2 g/dL (2.4-3.5); Glucose 89 mg/dL (83-110); Magnesium 1.9 mg/dL (1.6-2.6); Protein, Total 5.5 g/dL (5.8-8.1); Sodium 138 mmol/L (136-145)
[2022-12-11] MEDS ORDERED: Levothyroxine 175 MCG TAB PO SCH (09:00)
[2022-12-11] MEDS ORDERED: Potassium Chloride 20 MEQ TAB PO SCH (09:00)
[2022-12-11] MEDS ORDERED: Magnesium 2 GM/50 ML(in water) 2 GM in Premix 1 BAG IVPB SCH (09:00)
[2022-12-11] MEDS: Gabapentin 300 MG CAP PO SCH ×3 (09:09→20:46)
[2022-12-11] MEDS: Clopidogrel Bisulfate 75 MG TAB PO SCH (09:10)
[2022-12-11] MEDS: Doxycycline 100 MG in Sodium Chloride 0.9% 100 ML IVPB SCH ×2 (09:11→20:46)
[2022-12-11] MEDS: Magnesium Oxide 400 MG TAB PO SCH ×2 (09:11→20:46)
[2022-12-11] MEDS: Potassium Chloride 20 MEQ TAB PO SCH (09:11)
[2022-12-11] MEDS: methylPREDNISolone Sod Succ 40 MG VIAL IVP SCH (09:12)
[2022-12-11] MEDS: Budesonide 0.5 MG/2 ML NEB NEB SCH ×3 (11:07→18:31)
[2022-12-11] MEDS: Mycophenolate 250 MG CAP PO SCH ×2 (11:09→20:46)
[2022-12-11] MEDS: Potassium Chloride 20 MEQ in Premix 1 BAG IVPB SCH ×2 (15:33→18:05)
[2022-12-11] MEDS: traZODone HCl 50 MG TAB PO SCH (20:46)
[2022-12-12] MEDS: HYDROcodone/Acetaminophen 10/325 mg Tablet PO SCH ×4 (00:13→17:14)
[2022-12-12] MEDS: Ipratropium/Albuterol 3 ML NEB NEB SCH ×6 (02:13→23:22)
[2022-12-12] MEDS: Levothyroxine 175 MCG TAB PO SCH (06:27)
[2022-12-12 06:36] LABS: #Monocytes 0.8 thou/uL (0.11-0.59); #Neutrophils 6.5 thou/uL (1.40-6.50); %Basophils 0.1 % (0.0-1.0); %Eosinophils 0.1 % (0.0-10.0); %Lymphocytes 23.4 % (21.0-51.0); %Monocytes 7.8 % (0.0-10.0); %Neutrophils 68.1 % (42.0-75.0); Hematocrit 27.6 % (36.0-47.0); Hemoglobin 8.3 g/dL (12.0-16.0); Mean Corpuscular HGB CONC 30.1 g/dL (32.0-36.0); Mean Corpuscular Hemoglobin 25.5 pg (27.0-31.0); Mean Corpuscular Volume 84.7 fl (78.0-98.0); Platelet Count 256 10x3/uL (130-400); RBC Distribution Width 17.1 % (11.5-14.5); Red Blood Cell (RBC) Count 3.26 mill/uL (4.20-5.40); White Blood Cell (WBC) Count 9.6 10x3/uL (4.8-10.8)
[2022-12-12 06:58] LABS: Anion Gap 14 mmol/L (10-20); BUN (Urea Nitrogen) 14 mg/dL (9.8-20.1); Calc. Creatinine Clearance 88 mL/min (70-130); Calcium 8.8 mg/dL (7.8-10.44); Carbon Dioxide 31 mmol/L (23-31); Chloride 100 mmol/L (98-107); Estimated GFR 96; Glucose 89 mg/dL (83-110); Magnesium 2.1 mg/dL (1.6-2.6); Potassium 4.3 mmol/L (3.5-5.1); Sodium 141 mmol/L (136-145)
[2022-12-12] MEDS: Budesonide 0.5 MG/2 ML NEB NEB SCH ×4 (07:55→19:01)
[2022-12-12] MEDS ORDERED: Spironolactone 25 MG TAB PO SCH (09:15)
[2022-12-12] MEDS: Doxycycline 100 MG in Sodium Chloride 0.9% 100 ML IVPB SCH ×2 (09:45→21:18)
[2022-12-12] MEDS: Mycophenolate 250 MG CAP PO SCH ×2 (09:45→21:18)
[2022-12-12] MEDS: methylPREDNISolone Sod Succ 40 MG VIAL IVP SCH (09:46)
[2022-12-12] MEDS: Magnesium Oxide 400 MG TAB PO SCH ×2 (09:46→21:17)
[2022-12-12] MEDS: Clopidogrel Bisulfate 75 MG TAB PO SCH (09:46)
[2022-12-12] MEDS: Empagliflozin 10 MG TAB PO SCH (09:46)
[2022-12-12] MEDS: Gabapentin 300 MG CAP PO SCH ×3 (09:46→21:16)
[2022-12-12] MEDS: Potassium Chloride 20 MEQ TAB PO SCH (12:18)
[2022-12-12] MEDS: traZODone HCl 50 MG TAB PO SCH (21:17)
[2022-12-13] MEDS: HYDROcodone/Acetaminophen 10/325 mg Tablet PO SCH ×3 (00:04→12:36)
[2022-12-13] MEDS: Ipratropium/Albuterol 3 ML NEB NEB SCH ×4 (02:21→14:31)
[2022-12-13] MEDS: Levothyroxine 175 MCG TAB PO SCH (05:17)
[2022-12-13 05:28] VITALS: TEMP 97.9
[2022-12-13] MEDS: Budesonide 0.5 MG/2 ML NEB NEB SCH (07:09)
[2022-12-13] MEDS ORDERED: Spironolactone 25 MG TAB PO SCH (08:00)
[2022-12-13 08:18] VITALS: BP 118/68
[2022-12-13] MEDS: Doxycycline 100 MG in Sodium Chloride 0.9% 100 ML IVPB SCH (09:02)
[2022-12-13] MEDS: Clopidogrel Bisulfate 75 MG TAB PO SCH (09:02)
[2022-12-13] MEDS: Empagliflozin 10 MG TAB PO SCH (09:03)
[2022-12-13] MEDS: Gabapentin 300 MG CAP PO SCH ×2 (09:03→15:08)
[2022-12-13] MEDS: Magnesium Oxide 400 MG TAB PO SCH (09:03)
[2022-12-13] MEDS: methylPREDNISolone Sod Succ 40 MG VIAL IVP SCH (09:04)
[2022-12-13] MEDS: Mycophenolate 250 MG CAP PO SCH (09:04)
== END 2022-12-13 16:31 | disposition home health service (06) | DRG 196 ==
LOC: ERS 15:26 → ERHOLD 20:32 → IMCU/EMU 12-10 17:01 → T4-A 12-12 13:24
PROVIDERS: ADMIT Student in an Organized Health Care Education/Training Program; ATTEND Internal Medicine
PROC: 5A0945A Assistance with Respiratory Ventilation, 24-96 Consecutive Hours, High Flow/Velocity Cannula (ICD-10-PCS; principal; 2022-12-09)
DX: J84.10 Pulmonary fibrosis, unspecified (principal); I50.33 Acute on chronic diastolic (congestive) heart failure; J96.21 Acute and chronic respiratory failure with hypoxia; I47.10 Supraventricular tachycardia, unspecified; J44.1 Chronic obstructive pulmonary disease with (acute) exacerbation; D84.821 Immunodeficiency due to drugs; E87.3 Alkalosis; E03.9 Hypothyroidism, unspecified; F17.210 Nicotine dependence, cigarettes, uncomplicated; D64.9 Anemia, unspecified; E87.6 Hypokalemia; R77.8 Other specified abnormalities of plasma proteins; M35.00 Sjogren syndrome, unspecified; Z88.8 Allergy status to other drugs, medicaments and biological substances; Z99.81 Dependence on supplemental oxygen; Z88.0 Allergy status to penicillin; Z86.16 Personal history of COVID-19; Z91.041 Radiographic dye allergy status; Z88.5 Allergy status to narcotic agent; Z79.899 Other long term (current) drug therapy; Z79.890 Hormone replacement therapy; Z98.890 Other specified postprocedural states; Z90.710 Acquired absence of both cervix and uterus; Z90.49 Acquired absence of other specified parts of digestive tract
CPT/HCPCS: 36415; 71045; 71275; 80048; 80053; 83605; 83735; 83880; 84484; 85025; 93005; 93306; 94640; 96365; 96367; 96375; J0456; J1650; J1940; J2920; J3475; J3480; J3490; J7517; J7620; J7626; Q9967

== ENCOUNTER 2023-01-01 12:17 | Outpatient (CLI) | payer MEDICARE, MEDICAID | END 2023-01-01 12:18 | disposition home or self-care (01) | LOC: RAD 12:17 | PROVIDERS: ATTEND Internal Medicine Critical Care Medicine | DX: R06.00 Dyspnea, unspecified (principal); J84.10 Pulmonary fibrosis, unspecified | CPT/HCPCS: 71046 ==

== ENCOUNTER 2023-01-28 13:30 | Outpatient (CLI) | payer MEDICARE, MEDICAID | END 2023-01-28 13:31 | disposition home or self-care (01) | LOC: CT 13:30 | PROVIDERS: ATTEND Specialist | DX: M54.50 Low back pain, unspecified (principal); M47.816 Spondylosis without myelopathy or radiculopathy, lumbar region; M51.36 Other intervertebral disc degeneration, lumbar region; M89.38 Hypertrophy of bone, other site; Z98.890 Other specified postprocedural states | CPT/HCPCS: 72131 ==

== ENCOUNTER 2023-01-30 17:02 | Inpatient (IN) | payer MEDICARE, MEDICAID ==
[2023-01-30 18:58] LABS: #Monocytes 0.4 thou/uL (0.11-0.59); #Neutrophils 6.2 thou/uL (1.40-6.50); %Basophils 0.1 % (0.0-1.0); %Eosinophils 0.1 % (0.0-10.0); %Lymphocytes 16.3 % (21.0-51.0); %Monocytes 5.4 % (0.0-10.0); %Neutrophils 77.6 % (42.0-75.0); Hematocrit 34.8 % (36.0-47.0); Hemoglobin 10.5 g/dL (12.0-16.0); Mean Corpuscular HGB CONC 30.2 g/dL (32.0-36.0); Mean Corpuscular Hemoglobin 28.5 pg (27.0-31.0); Mean Corpuscular Volume 94.6 fl (78.0-98.0); Mean Platelet Volume 11.3 fL (7.4-10.4); Platelet Count 213 10x3/uL (130-400); RBC Distribution Width 16.5 % (11.5-14.5); Red Blood Cell (RBC) Count 3.68 mill/uL (4.20-5.40)
[2023-01-30 19:23] LABS: ALT (SGPT) 7 U/L (8-55); AST (SGOT) 13 U/L (5-34); Albumin 3.4 g/dL (3.4-4.8); Alkaline Phosphatase 46 U/L (40-110); Anion Gap 13 mmol/L (10-20); BUN (Urea Nitrogen) 9 mg/dL (9.8-20.1); Calc. Creatinine Clearance 0 mL/min (70-130); Calcium 8.8 mg/dL (7.8-10.44); Carbon Dioxide 32 mmol/L (23-31); Chloride 101 mmol/L (98-107); Estimated GFR 95; Globulin 2.5 g/dL (2.4-3.5); Glucose 88 mg/dL (83-110); Protein, Total 5.9 g/dL (5.8-8.1); Sodium 143 mmol/L (136-145)
[2023-01-30 19:34] LABS: Troponin I 0.054 ng/mL (< 0.028)
[2023-01-30 19:41] LABS: Potassium 2.6 mmol/L (3.5-5.1)
[2023-01-30] MEDS ORDERED: HYDROcodone/Acetaminophen 10/325 mg Tablet ONE (20:04)
[2023-01-30] MEDS ORDERED: Potassium Chloride 20 MEQ TAB ONE (20:04)
[2023-01-30] MEDS ORDERED: LevoFLOXacin 500 mg/D5W 100 ML BAG ONE (20:05)
[2023-01-30] MEDS ORDERED: Potassium Chloride 20 MEQ/100 ML PREMIX BAG ONE (20:07)
[2023-01-30] MEDS ORDERED: Furosemide 40 MG/4 ML VIAL SLOW IVP SCH (21:15)
[2023-01-30] MEDS ORDERED: Electrolyte Replacement Protocol 1 EACH FS PRN (21:30)
[2023-01-30] MEDS ORDERED: Ondansetron ODT 4 MG TAB PO PRN (21:30)
[2023-01-30] MEDS ORDERED: Ondansetron PF 4 MG/2 ML Vial IVP PRN (21:30)
[2023-01-30] MEDS ORDERED: Acetaminophen 325 MG TAB PO PRN (21:30)
[2023-01-30 21:51] LABS: Magnesium 1.8 mg/dL (1.6-2.6)
[2023-01-30] MEDS ORDERED: Mycophenolate 250 MG CAP PO SCH (23:30)
[2023-01-30] MEDS ORDERED: Gabapentin 300 MG CAP PO SCH (23:30)
[2023-01-30] MEDS: Ipratropium/Albuterol 3 ML NEB NEB SCH (23:44)
[2023-01-30 23:59] VITALS: BMI 28.2
[2023-01-30] MEDS ORDERED: Magnesium 2 GM/50 ML(in water) 2 GM in Premix 1 BAG IVPB SCH (23:59)
[2023-01-31] MEDS: Ipratropium/Albuterol 3 ML NEB NEB SCH ×6 (02:24→22:27)
[2023-01-31 02:38] LABS: Legionella Urinary Ag Negative (Negative); Strep pneumo Urine Ag NEGATIVE (NEGATIVE)
[2023-01-31] MEDS: HYDROcodone/Acetaminophen 10/325 mg Tablet PO SCH ×4 (04:11→21:40)
[2023-01-31] MEDS: Levothyroxine 175 MCG TAB PO SCH (04:11)
[2023-01-31 04:57] LABS: #Eosinphils 0.2 thou/uL (0.0-0.7); #Monocytes 0.8 thou/uL (0.11-0.59); #Neutrophils 6.2 thou/uL (1.40-6.50); %Basophils 0.1 % (0.0-1.0); %Eosinophils 1.6 % (0.0-10.0); %Lymphocytes 24.2 % (21.0-51.0); %Neutrophils 65.9 % (42.0-75.0); Hematocrit 36.2 % (36.0-47.0); Hemoglobin 11.3 g/dL (12.0-16.0); Mean Corpuscular HGB CONC 31.2 g/dL (32.0-36.0); Mean Corpuscular Hemoglobin 28.9 pg (27.0-31.0); Mean Corpuscular Volume 92.6 fl (78.0-98.0); Mean Platelet Volume 12.1 fL (7.4-10.4); Platelet Count 234 10x3/uL (130-400); RBC Distribution Width 16.6 % (11.5-14.5); Red Blood Cell (RBC) Count 3.91 mill/uL (4.20-5.40); White Blood Cell (WBC) Count 9.4 10x3/uL (4.8-10.8)
[2023-01-31 05:34] LABS: Anion Gap 17 mmol/L (10-20); BUN (Urea Nitrogen) 8 mg/dL (9.8-20.1); Calc. Creatinine Clearance 84 mL/min (70-130); Calcium 9.1 mg/dL (7.8-10.44); Carbon Dioxide 30 mmol/L (23-31); Chloride 98 mmol/L (98-107); Estimated GFR 94; Glucose 65 mg/dL (83-110); Magnesium 2.7 mg/dL (1.6-2.6); Potassium 3.3 mmol/L (3.5-5.1); Sodium 142 mmol/L (136-145)
[2023-01-31] MEDS: Budesonide 0.5 MG/2 ML NEB NEB SCH ×4 (06:27→18:32)
[2023-01-31] MEDS ORDERED: Potassium Chloride 20 MEQ TAB PO SCH ×2 (08:00→10:00)
[2023-01-31] MEDS ORDERED: methylPREDNISolone Sod Succ 40 MG VIAL IVP SCH (09:00)
[2023-01-31] MEDS: Rosuvastatin 10 MG TAB PO SCH (09:28)
[2023-01-31] MEDS: Gabapentin 300 MG CAP PO SCH ×3 (09:29→21:18)
[2023-01-31] MEDS: Empagliflozin 10 MG TAB PO SCH (09:29)
[2023-01-31] MEDS: Clopidogrel Bisulfate 75 MG TAB PO SCH (09:29)
[2023-01-31] MEDS: Spironolactone 25 MG TAB PO SCH (09:29)
[2023-01-31] MEDS ORDERED: Furosemide 40 MG/4 ML VIAL SLOW IVP SCH (10:00)
[2023-01-31] MEDS: Mycophenolate 250 MG CAP PO SCH ×2 (11:22→21:45)
[2023-01-31] MEDS: cefTRIAXone\\ROCEPHIN 1 GM in Sodium Chloride 0.9% 100 ML IVPB SCH (21:17)
[2023-01-31] MEDS: Doxycycline 100 MG CAP PO SCH (21:17)
[2023-01-31] MEDS: methylPREDNISolone Sod Succ 40 MG VIAL IVP SCH (21:19)
[2023-02-01] MEDS: Ipratropium/Albuterol 3 ML NEB NEB SCH ×6 (02:35→22:41)
[2023-02-01] MEDS: HYDROcodone/Acetaminophen 10/325 mg Tablet PO SCH ×4 (05:36→23:44)
[2023-02-01] MEDS: Levothyroxine 175 MCG TAB PO SCH (05:37)
[2023-02-01 05:49] LABS: #Monocytes 0.2 thou/uL (0.11-0.59); #Neutrophils 6.5 thou/uL (1.40-6.50); %Lymphocytes 8.9 % (21.0-51.0); %Monocytes 2.8 % (0.0-10.0); %Neutrophils 87.8 % (42.0-75.0); Hematocrit 39.5 % (36.0-47.0); Hemoglobin 11.8 g/dL (12.0-16.0); Mean Corpuscular HGB CONC 29.9 g/dL (32.0-36.0); Mean Corpuscular Hemoglobin 28.2 pg (27.0-31.0); Mean Corpuscular Volume 94.5 fl (78.0-98.0); Mean Platelet Volume 11.7 fL (7.4-10.4); Platelet Count 239 10x3/uL (130-400); RBC Distribution Width 16.3 % (11.5-14.5); Red Blood Cell (RBC) Count 4.18 mill/uL (4.20-5.40); White Blood Cell (WBC) Count 7.4 10x3/uL (4.8-10.8)
[2023-02-01 06:32] LABS: Anion Gap 20 mmol/L (10-20); BUN (Urea Nitrogen) 16 mg/dL (9.8-20.1); Calc. Creatinine Clearance 65 mL/min (70-130); Calcium 9.4 mg/dL (7.8-10.44); Carbon Dioxide 29 mmol/L (23-31); Chloride 96 mmol/L (98-107); Estimated GFR 82; Glucose 113 mg/dL (83-110); Magnesium 2.2 mg/dL (1.6-2.6); Sodium 141 mmol/L (136-145)
[2023-02-01] MEDS: Budesonide 0.5 MG/2 ML NEB NEB SCH ×4 (07:36→18:27)
[2023-02-01] MEDS: Furosemide 40 MG/4 ML VIAL SLOW IVP SCH (09:59)
[2023-02-01] MEDS: Gabapentin 300 MG CAP PO SCH ×3 (09:59→20:50)
[2023-02-01] MEDS: Mycophenolate 250 MG CAP PO SCH ×2 (10:00→20:51)
[2023-02-01] MEDS: Clopidogrel Bisulfate 75 MG TAB PO SCH (10:01)
[2023-02-01] MEDS: Spironolactone 25 MG TAB PO SCH (10:01)
[2023-02-01] MEDS: Doxycycline 100 MG CAP PO SCH ×2 (10:01→20:49)
[2023-02-01] MEDS: Rosuvastatin 10 MG TAB PO SCH (10:01)
[2023-02-01] MEDS: Empagliflozin 10 MG TAB PO SCH (10:02)
[2023-02-01] MEDS: methylPREDNISolone Sod Succ 40 MG VIAL IVP SCH ×2 (10:03→20:54)
[2023-02-01] MEDS: cefTRIAXone\\ROCEPHIN 1 GM in Sodium Chloride 0.9% 100 ML IVPB SCH (20:44)
[2023-02-02] MEDS: Ipratropium/Albuterol 3 ML NEB NEB SCH ×2 (02:27→07:57)
[2023-02-02 05:29] LABS: #Monocytes 0.5 thou/uL (0.11-0.59); #Neutrophils 12.2 thou/uL (1.40-6.50); %Basophils 0.1 % (0.0-1.0); %Lymphocytes 5.7 % (21.0-51.0); %Monocytes 3.7 % (0.0-10.0); %Neutrophils 89.6 % (42.0-75.0); Hematocrit 38.1 % (36.0-47.0); Hemoglobin 11.8 g/dL (12.0-16.0); Mean Corpuscular Hemoglobin 29.1 pg (27.0-31.0); Mean Corpuscular Volume 94.1 fl (78.0-98.0); Mean Platelet Volume 11.6 fL (7.4-10.4); Platelet Count 289 10x3/uL (130-400); RBC Distribution Width 16.5 % (11.5-14.5); Red Blood Cell (RBC) Count 4.05 mill/uL (4.20-5.40); White Blood Cell (WBC) Count 13.6 10x3/uL (4.8-10.8)
[2023-02-02] MEDS: Levothyroxine 175 MCG TAB PO SCH (05:46)
[2023-02-02] MEDS: HYDROcodone/Acetaminophen 10/325 mg Tablet PO SCH ×2 (05:47→12:11)
[2023-02-02 05:59] LABS: Anion Gap 15 mmol/L (10-20); BUN (Urea Nitrogen) 27 mg/dL (9.8-20.1); Calc. Creatinine Clearance 65 mL/min (70-130); Calcium 9.5 mg/dL (7.8-10.44); Carbon Dioxide 32 mmol/L (23-31); Chloride 93 mmol/L (98-107); Estimated GFR 83; Glucose 123 mg/dL (83-110); Potassium 3.1 mmol/L (3.5-5.1); Sodium 137 mmol/L (136-145)
[2023-02-02] MEDS ORDERED: Potassium Chloride 20 MEQ TAB PO SCH (08:00)
[2023-02-02] MEDS: Budesonide 0.5 MG/2 ML NEB NEB SCH (08:00)
[2023-02-02] MEDS ORDERED: Magnesium 2 GM/50 ML(in water) 2 GM in Premix 1 BAG IVPB SCH (08:00)
[2023-02-02] MEDS: methylPREDNISolone Sod Succ 40 MG VIAL IVP SCH (08:33)
[2023-02-02] MEDS: Furosemide 40 MG/4 ML VIAL SLOW IVP SCH (08:34)
[2023-02-02] MEDS: Spironolactone 25 MG TAB PO SCH (08:35)
[2023-02-02] MEDS: Gabapentin 300 MG CAP PO SCH (08:35)
[2023-02-02] MEDS: Doxycycline 100 MG CAP PO SCH (08:35)
[2023-02-02] MEDS: Clopidogrel Bisulfate 75 MG TAB PO SCH (08:35)
[2023-02-02] MEDS: Rosuvastatin 10 MG TAB PO SCH (08:35)
[2023-02-02] MEDS: Mycophenolate 250 MG CAP PO SCH (08:35)
[2023-02-02] MEDS: Empagliflozin 10 MG TAB PO SCH (08:36)
[2023-02-02 12:10] VITALS: BP 113/55; TEMP 97.7
== END 2023-02-02 14:30 | disposition home or self-care (01) | DRG 291 ==
LOC: ERS 17:02 → 2NO 20:33 → OBSVTOIN 01-31 15:19
PROVIDERS: ADMIT Student in an Organized Health Care Education/Training Program; ATTEND Family Medicine
DX: I11.0 Hypertensive heart disease with heart failure (principal); I50.33 Acute on chronic diastolic (congestive) heart failure; J96.21 Acute and chronic respiratory failure with hypoxia; E03.9 Hypothyroidism, unspecified; J84.10 Pulmonary fibrosis, unspecified; F17.210 Nicotine dependence, cigarettes, uncomplicated; F10.90 Alcohol use, unspecified, uncomplicated; E87.6 Hypokalemia; R79.89 Other specified abnormal findings of blood chemistry; D64.9 Anemia, unspecified; S22.059D Unspecified fracture of T5-T6 vertebra, subsequent encounter for fracture with routine healing; Z88.0 Allergy status to penicillin; Z88.5 Allergy status to narcotic agent; Z88.8 Allergy status to other drugs, medicaments and biological substances; Z79.899 Other long term (current) drug therapy; Z79.890 Hormone replacement therapy; Z79.2 Long term (current) use of antibiotics; Z90.49 Acquired absence of other specified parts of digestive tract; Z90.710 Acquired absence of both cervix and uterus; Z98.890 Other specified postprocedural states
CPT/HCPCS: 36415; 71045; 80048; 80053; 83605; 83735; 83880; 84145; 84484; 85025; 86140; 87040; 87070; 87205; 87449; 87899; 93005; 94640; 96365; 96367; 96372; 96375; 96376; G0378; J0696; J1650; J1940; J1956; J2920; J3475; J3480; J3490; J7517; J7620; J7626

== ENCOUNTER 2023-02-18 14:45 | Emergency (ER) | payer MEDICARE, MEDICAID ==
[2023-02-18] MEDS ORDERED: Cyclobenzaprine 10 MG TAB ONE (16:03)
[2023-02-18] MEDS ORDERED: Lidocaine 4% Patch TD SCH (17:00)
[2023-02-19] MEDS ORDERED: Transdermal Patch Removal TOP SCH (06:00)
== END 2023-02-18 18:23 | disposition home or self-care (01) ==
LOC: ERS 14:45
DX: M54.6 Pain in thoracic spine (principal); M62.830 Muscle spasm of back; I10 Essential (primary) hypertension; E03.9 Hypothyroidism, unspecified; I25.2 Old myocardial infarction; I25.10 Atherosclerotic heart disease of native coronary artery without angina pectoris; F17.210 Nicotine dependence, cigarettes, uncomplicated; Z79.899 Other long term (current) drug therapy
CPT/HCPCS: 71045; 93005

== ENCOUNTER 2023-02-23 11:14 | Inpatient (IN) | payer MEDICARE, MEDICAID ==
[2023-02-23 11:47] LABS: #Eosinphils 0.1 thou/uL (0.0-0.7); #Neutrophils 10.4 thou/uL (1.40-6.50); %Basophils 0.1 % (0.0-1.0); %Eosinophils 0.5 % (0.0-10.0); %Lymphocytes 11.8 % (21.0-51.0); %Monocytes 7.5 % (0.0-10.0); %Neutrophils 79.6 % (42.0-75.0); Hematocrit 37.9 % (36.0-47.0); Hemoglobin 12.4 g/dL (12.0-16.0); Mean Corpuscular HGB CONC 32.7 g/dL (32.0-36.0); Mean Corpuscular Volume 88.8 fl (78.0-98.0); Mean Platelet Volume 12.3 fL (7.4-10.4); Platelet Count 140 10x3/uL (130-400); RBC Distribution Width 13.6 % (11.5-14.5); Red Blood Cell (RBC) Count 4.27 mill/uL (4.20-5.40); White Blood Cell (WBC) Count 13.1 10x3/uL (4.8-10.8)
[2023-02-23] MEDS ORDERED: Sodium Chloride 0.9% 100 ML ONE (11:53)
[2023-02-23] MEDS ORDERED: Cefepime 2 GM VIAL ONE (11:53)
[2023-02-23] MEDS ORDERED: fentaNYL 50 mcg/mL 1 mL Vial ONE ×3 (11:53→23:52)
[2023-02-23] MEDS ORDERED: Vancomycin (BATCH) 1.5 GM in Premix 1 BAG IVPB SCH (12:00)
[2023-02-23 12:02] LABS: INR-International Normal Ratio 1.1; PTT 24.7 sec (22.9-36.1); Prothrombin Time 14.7 sec (12.0-14.7)
[2023-02-23 12:13] LABS: ALT (SGPT) 14 U/L (8-55); AST (SGOT) 22 U/L (5-34); Albumin 3.6 g/dL (3.4-4.8); Alkaline Phosphatase 68 U/L (40-110); Anion Gap 14 mmol/L (10-20); BUN (Urea Nitrogen) 18 mg/dL (9.8-20.1); Bilirubin, Total 0.7 mg/dL (0.2-1.2); Calc. Creatinine Clearance 0 mL/min (70-130); Carbon Dioxide 25 mmol/L (23-31); Chloride 94 mmol/L (98-107); Estimated GFR 78; Globulin 3.5 g/dL (2.4-3.5); Glucose 97 mg/dL (83-110); Potassium 4.4 mmol/L (3.5-5.1); Protein, Total 7.1 g/dL (5.8-8.1); Sodium 129 mmol/L (136-145)
[2023-02-23] MEDS ORDERED: NOREPINEPHRINE 8 MG/250 ML-D5W 250 ML ONE (12:47)
[2023-02-23 15:58] LABS: Bilirubin Unable to Interpret (Negative); Blood, Urine Unable to Interpret (Negative); Clarity Hazy (Clear); Glucose, Urine (Dipstick) Unable to Interpret mg/dL (Negative); Ketone, Urine Unable to Interpret mg/dL (Negative); Leukocyte Unable to Interpret Leu/uL (Negative); Nitrite Unable to Interpret (Negative); Protein, Urine (Dipstick) Unable to Interpret mg/dL (Neg-Trace); Urobilinogen UNABLE TO INTERPRET mg/dL (Less than 2)
[2023-02-23 16:03] LABS: Bacteria/HPF 4+ HPF (None Seen); CAUTI Indications for Culture Dysuria,urgency,freq; Renal Epithelial 0-3 HPF (None Seen); Specific Gravity, Urine 1.023 (1.002-1.036); Squamous Epithelial 0-3 HPF (0-3); WBC/HPF Greater than 50 HPF (0-3); pH, Urine 5.3 (5.0-9.0)
[2023-02-23 16:05] LABS: Urine Culture Reflex Yes Yes
[2023-02-23] MEDS ORDERED: Hydrocortisone Sod Succ/PF 100 mg/2 ml Vial ONE (17:51)
[2023-02-23 19:59] LABS: Troponin I 0.157 ng/mL (< 0.028)
[2023-02-23] MEDS ORDERED: Ondansetron PF 4 MG/2 ML Vial IVP PRN (20:03)
[2023-02-23] MEDS ORDERED: Acetaminophen 325 MG TAB PO PRN (20:03)
[2023-02-23] MEDS ORDERED: Acetaminophen 650 MG Suppository PR PRN (20:03)
[2023-02-23] MEDS ORDERED: Ondansetron ODT 4 MG TAB PO PRN (20:03)
[2023-02-23] MEDS: Sodium Chloride 0.9% 1,000 ML IV SCH (21:10)
[2023-02-23] MEDS ORDERED: fentaNYL 50 mcg/mL 1 mL Vial SLOW IVP SCH (23:30)
[2023-02-24] MEDS ORDERED: fentaNYL 50 mcg/mL 1 mL Vial ONE ×4 (01:27→17:16)
[2023-02-24] MEDS ORDERED: Hydrocortisone Sod Succ/PF 100 mg/2 ml Vial ONE ×3 (01:42→11:55)
[2023-02-24] MEDS: Hydrocortisone Sod Succ/PF 100 mg/2 ml Vial IVP SCH ×5 (01:53→23:28)
[2023-02-24] MEDS ORDERED: fentaNYL 50 mcg/mL 1 mL Vial SLOW IVP SCH (02:15)
[2023-02-24] MEDS ORDERED: Vancomycin (BATCH) 1.25 GM in Premix 1 BAG IVPB SCH (03:00)
[2023-02-24] MEDS ORDERED: Sodium Chloride 0.9% 200 ML ONE (03:45)
[2023-02-24] MEDS ORDERED: Vancomycin HCl 500 MG VIAL ONE ×2 (03:45→16:34)
[2023-02-24] MEDS ORDERED: Cefepime 2 GM VIAL ONE ×2 (03:45→12:42)
[2023-02-24 03:57] LABS: #Monocytes 0.2 thou/uL (0.11-0.59); %Basophils 0.1 % (0.0-1.0); %Monocytes 2.4 % (0.0-10.0); %Neutrophils 89.2 % (42.0-75.0); Hematocrit 31.6 % (36.0-47.0); Mean Corpuscular HGB CONC 31.6 g/dL (32.0-36.0); Mean Corpuscular Hemoglobin 28.6 pg (27.0-31.0); Mean Corpuscular Volume 90.3 fl (78.0-98.0); Mean Platelet Volume 12.3 fL (7.4-10.4); Platelet Count 109 10x3/uL (130-400); RBC Distribution Width 13.6 % (11.5-14.5); White Blood Cell (WBC) Count 7.9 10x3/uL (4.8-10.8)
[2023-02-24] MEDS: Cefepime 2 GM in Sodium Chloride 0.9% 100 ML IVPB SCH ×2 (03:59→15:13)
[2023-02-24] MEDS: Vancomycin HCl 500 MG in Sodium Chloride 0.9% 100 ML IVPB SCH ×2 (04:09→16:41)
[2023-02-24 04:17] LABS: Anion Gap 11 mmol/L (10-20); BUN (Urea Nitrogen) 11 mg/dL (9.8-20.1); Calc. Creatinine Clearance 88 mL/min (70-130); Calcium 8.2 mg/dL (7.8-10.44); Carbon Dioxide 21 mmol/L (23-31); Chloride 107 mmol/L (98-107); Estimated GFR 96; Glucose 77 mg/dL (83-110); Potassium 3.8 mmol/L (3.5-5.1); Sodium 135 mmol/L (136-145)
[2023-02-24 04:22] LABS: Troponin I 0.066 ng/mL (< 0.028)
[2023-02-24 06:43] LABS: SARS-CoV-2 NAA Rapid Test Not Detected (NotDetected)
[2023-02-24] MEDS ORDERED: Enoxaparin 40 MG (0.4 mL) SYRINGE ONE (08:13)
[2023-02-24] MEDS: Enoxaparin 40 MG (0.4 mL) SYRINGE SC SCH (08:14)
[2023-02-24] MEDS: Sodium Chloride 0.9% 1,000 ML IV SCH (08:28)
[2023-02-24] MEDS ORDERED: Empagliflozin 10 MG TAB PO SCH ×2 (09:45→15:00)
[2023-02-24 10:02] LABS: Troponin I 0.056 ng/mL (< 0.028)
[2023-02-24] MEDS ORDERED: tiZANidine HCl 4 MG TAB ONE (10:16)
[2023-02-24] MEDS: tiZANidine HCl 4 MG TAB PO SCH ×2 (10:23→19:09)
[2023-02-24] MEDS: fentaNYL 50 mcg/mL 1 mL Vial SLOW IVP PRN ×4 (10:24→20:41)
[2023-02-24] MEDS ORDERED: Budesonide 0.5 MG/2 ML NEB ONE (10:34)
[2023-02-24] MEDS: Lidocaine 4% Patch TD PRN (10:43)
[2023-02-24] MEDS: Budesonide 0.5 MG/2 ML NEB NEB SCH ×3 (10:47→22:36)
[2023-02-24] MEDS ORDERED: Sodium Chloride 0.9% 100 ML ONE ×2 (12:42→16:35)
[2023-02-24] MEDS: traZODone HCl 50 MG TAB PO SCH (20:39)
[2023-02-24] MEDS: Gabapentin 300 MG CAP PO SCH (20:40)
[2023-02-24] MEDS: Mycophenolate 250 MG CAP PO SCH (20:41)
[2023-02-24] MEDS ORDERED: MYCOPHENOLATE MOFETIL 500 MG PO SCH (21:00)
[2023-02-24] MEDS: HYDROcodone/Acetaminophen 10/325 mg Tablet PO PRN (23:28)
[2023-02-25] MEDS: Transdermal Patch Removal TOP SCH ×2 (00:40→20:59)
[2023-02-25] MEDS: Cefepime 2 GM in Sodium Chloride 0.9% 100 ML IVPB SCH (03:33)
[2023-02-25] MEDS: tiZANidine HCl 4 MG TAB PO SCH ×3 (03:34→17:46)
[2023-02-25 04:09] LABS: Vancomycin, Trough 9.9 ug/mL
[2023-02-25] MEDS: HYDROcodone/Acetaminophen 10/325 mg Tablet PO PRN ×3 (06:21→17:48)
[2023-02-25] MEDS: Levothyroxine 175 MCG TAB PO SCH (06:22)
[2023-02-25] MEDS: Hydrocortisone Sod Succ/PF 100 mg/2 ml Vial IVP SCH ×2 (06:22→17:45)
[2023-02-25] MEDS: Budesonide 0.5 MG/2 ML NEB NEB SCH ×2 (07:14→18:11)
[2023-02-25 07:52] LABS: Anion Gap 18 mmol/L (10-20); BUN (Urea Nitrogen) 16 mg/dL (9.8-20.1); Calc. Creatinine Clearance 87 mL/min (70-130); Calcium 8.8 mg/dL (7.8-10.44); Carbon Dioxide 16 mmol/L (23-31); Chloride 104 mmol/L (98-107); Estimated GFR 95; Glucose 70 mg/dL (83-110); Potassium 3.8 mmol/L (3.5-5.1); Sodium 134 mmol/L (136-145)
[2023-02-25] MEDS ORDERED: Meropenem 1 GM in Sodium Chloride 0.9% 100 ML IVPB SCH (08:00)
[2023-02-25] MEDS ORDERED: Empagliflozin 10 MG TAB PO SCH (09:00)
[2023-02-25] MEDS: Gabapentin 300 MG CAP PO SCH ×3 (09:04→20:58)
[2023-02-25] MEDS: Enoxaparin 40 MG (0.4 mL) SYRINGE SC SCH (09:05)
[2023-02-25] MEDS: Mycophenolate 250 MG CAP PO SCH ×2 (09:10→20:58)
[2023-02-25] MEDS ORDERED: Hydrocortisone Sod Succ/PF 100 mg/2 ml Vial IVP SCH (10:45)
[2023-02-25] MEDS ORDERED: fentaNYL 50 mcg/mL 1 mL Vial SLOW IVP PRN (10:52)
[2023-02-25] MEDS ORDERED: Ipratropium/Albuterol 3 ML NEB NEB PRN (10:53)
[2023-02-25 12:28] LABS: #Monocytes 0.2 thou/uL (0.11-0.59); #Neutrophils 8.6 thou/uL (1.40-6.50); %Monocytes 2.4 % (0.0-10.0); %Neutrophils 90.2 % (42.0-75.0); Hematocrit 34.7 % (36.0-47.0); Hemoglobin 10.9 g/dL (12.0-16.0); Mean Corpuscular HGB CONC 31.4 g/dL (32.0-36.0); Mean Corpuscular Hemoglobin 28.2 pg (27.0-31.0); Mean Corpuscular Volume 89.9 fl (78.0-98.0); Mean Platelet Volume 11.9 fL (7.4-10.4); Platelet Count 170 10x3/uL (130-400); RBC Distribution Width 13.5 % (11.5-14.5); Red Blood Cell (RBC) Count 3.86 mill/uL (4.20-5.40); White Blood Cell (WBC) Count 9.5 10x3/uL (4.8-10.8)
[2023-02-25] MEDS: Meropenem 1 GM in Sodium Chloride 0.9% 100 ML IVPB SCH (17:47)
[2023-02-25] MEDS ORDERED: Calcium Carbonate 500 MG ChewTAB PO PRN (19:05)
[2023-02-25] MEDS: traZODone HCl 50 MG TAB PO SCH (20:57)
[2023-02-26] MEDS: Meropenem 1 GM in Sodium Chloride 0.9% 100 ML IVPB SCH ×3 (00:53→16:38)
[2023-02-26] MEDS: Hydrocortisone Sod Succ/PF 100 mg/2 ml Vial IVP SCH ×3 (00:53→20:24)
[2023-02-26] MEDS: tiZANidine HCl 4 MG TAB PO SCH ×3 (02:48→17:23)
[2023-02-26] MEDS: Levothyroxine 175 MCG TAB PO SCH (05:07)
[2023-02-26] MEDS: HYDROcodone/Acetaminophen 10/325 mg Tablet PO PRN ×4 (05:07→20:23)
[2023-02-26] MEDS: Budesonide 0.5 MG/2 ML NEB NEB SCH ×2 (07:46→18:27)
[2023-02-26] MEDS: Gabapentin 300 MG CAP PO SCH ×3 (08:01→20:22)
[2023-02-26] MEDS: Mycophenolate 250 MG CAP PO SCH ×2 (08:01→20:22)
[2023-02-26] MEDS: Rosuvastatin 10 MG TAB PO SCH (08:01)
[2023-02-26] MEDS: Clopidogrel Bisulfate 75 MG TAB PO SCH (08:01)
[2023-02-26] MEDS: Enoxaparin 40 MG (0.4 mL) SYRINGE SC SCH (08:02)
[2023-02-26] MEDS ORDERED: Polyethylene Glycol 3350 17 GM Packet PO SCH (10:45)
[2023-02-26] MEDS: Senokot S 8.6-50 MG TAB PO SCH (20:23)
[2023-02-26] MEDS: traZODone HCl 50 MG TAB PO SCH (20:23)
[2023-02-26] MEDS: Transdermal Patch Removal TOP SCH (20:25)
[2023-02-27] MEDS: Meropenem 1 GM in Sodium Chloride 0.9% 100 ML IVPB SCH ×3 (01:16→17:58)
[2023-02-27] MEDS: tiZANidine HCl 4 MG TAB PO SCH ×3 (01:16→17:58)
[2023-02-27] MEDS: HYDROcodone/Acetaminophen 10/325 mg Tablet PO PRN ×5 (01:17→21:01)
[2023-02-27 05:18] LABS: #Eosinphils 0.1 thou/uL (0.0-0.7); #Monocytes 0.6 thou/uL (0.11-0.59); #Neutrophils 4.7 thou/uL (1.40-6.50); %Basophils 0.1 % (0.0-1.0); %Lymphocytes 22.7 % (21.0-51.0); %Neutrophils 66.8 % (42.0-75.0); Hematocrit 32.3 % (36.0-47.0); Hemoglobin 10.3 g/dL (12.0-16.0); Mean Corpuscular HGB CONC 31.9 g/dL (32.0-36.0); Mean Corpuscular Hemoglobin 28.5 pg (27.0-31.0); Mean Corpuscular Volume 89.2 fl (78.0-98.0); Mean Platelet Volume 11.7 fL (7.4-10.4); Platelet Count 166 10x3/uL (130-400); RBC Distribution Width 13.7 % (11.5-14.5); Red Blood Cell (RBC) Count 3.62 mill/uL (4.20-5.40); White Blood Cell (WBC) Count 7.1 10x3/uL (4.8-10.8)
[2023-02-27 05:46] LABS: Anion Gap 11 mmol/L (10-20); BUN (Urea Nitrogen) 16 mg/dL (9.8-20.1); Calc. Creatinine Clearance 102 mL/min (70-130); Calcium 8.1 mg/dL (7.8-10.44); Carbon Dioxide 26 mmol/L (23-31); Chloride 104 mmol/L (98-107); Estimated GFR 98; Glucose 86 mg/dL (83-110); Potassium 2.9 mmol/L (3.5-5.1); Sodium 138 mmol/L (136-145)
[2023-02-27] MEDS: Levothyroxine 150 MCG TAB PO SCH (05:58)
[2023-02-27] MEDS: Budesonide 0.5 MG/2 ML NEB NEB SCH ×2 (07:18→19:20)
[2023-02-27] MEDS: Enoxaparin 40 MG (0.4 mL) SYRINGE SC SCH (08:00)
[2023-02-27] MEDS: Hydrocortisone Sod Succ/PF 100 mg/2 ml Vial IVP SCH ×2 (08:01→20:52)
[2023-02-27] MEDS: Gabapentin 300 MG CAP PO SCH ×3 (08:01→20:49)
[2023-02-27] MEDS: Mycophenolate 250 MG CAP PO SCH ×2 (08:02→20:51)
[2023-02-27] MEDS: Senokot S 8.6-50 MG TAB PO SCH ×2 (08:03→20:50)
[2023-02-27] MEDS: Clopidogrel Bisulfate 75 MG TAB PO SCH (08:03)
[2023-02-27] MEDS: Polyethylene Glycol 3350 17 GM Packet PO SCH (08:03)
[2023-02-27] MEDS: Rosuvastatin 10 MG TAB PO SCH (08:03)
[2023-02-27] MEDS ORDERED: Potassium Chloride 20 MEQ TAB PO SCH ×2 (08:15→14:00)
[2023-02-27] MEDS: traZODone HCl 50 MG TAB PO SCH (20:49)
[2023-02-27] MEDS: Transdermal Patch Removal TOP SCH (20:57)
[2023-02-28] MEDS: Meropenem 1 GM in Sodium Chloride 0.9% 100 ML IVPB SCH ×4 (00:01→23:21)
[2023-02-28] MEDS: tiZANidine HCl 4 MG TAB PO SCH ×3 (02:55→18:30)
[2023-02-28 04:34] LABS: #Eosinphils 0.1 thou/uL (0.0-0.7); #Monocytes 0.4 thou/uL (0.11-0.59); #Neutrophils 4.7 thou/uL (1.40-6.50); %Basophils 0.3 % (0.0-1.0); %Eosinophils 1.6 % (0.0-10.0); %Lymphocytes 18.1 % (21.0-51.0); %Monocytes 5.7 % (0.0-10.0); %Neutrophils 73.4 % (42.0-75.0); Hematocrit 41.2 % (36.0-47.0); Hemoglobin 12.7 g/dL (12.0-16.0); Mean Corpuscular HGB CONC 30.8 g/dL (32.0-36.0); Mean Corpuscular Hemoglobin 28.5 pg (27.0-31.0); Mean Platelet Volume 11.7 fL (7.4-10.4); Platelet Count 181 10x3/uL (130-400); RBC Distribution Width 13.7 % (11.5-14.5); Red Blood Cell (RBC) Count 4.45 mill/uL (4.20-5.40); White Blood Cell (WBC) Count 6.4 10x3/uL (4.8-10.8)
[2023-02-28 05:07] LABS: Anion Gap 12 mmol/L (10-20); BUN (Urea Nitrogen) 13 mg/dL (9.8-20.1); Calc. Creatinine Clearance 95 mL/min (70-130); Calcium 8.4 mg/dL (7.8-10.44); Carbon Dioxide 23 mmol/L (23-31); Chloride 105 mmol/L (98-107); Estimated GFR 96; Glucose 104 mg/dL (83-110); Magnesium 1.8 mg/dL (1.6-2.6); Potassium 4.8 mmol/L (3.5-5.1); Sodium 135 mmol/L (136-145)
[2023-02-28 05:09] LABS: Mean Corpuscular Volume 92.6 fl (78.0-98.0)
[2023-02-28] MEDS: HYDROcodone/Acetaminophen 10/325 mg Tablet PO PRN ×4 (06:04→20:32)
[2023-02-28] MEDS: Levothyroxine 150 MCG TAB PO SCH (06:11)
[2023-02-28] MEDS: Lidocaine 4% Patch TD PRN (06:19)
[2023-02-28] MEDS: Mycophenolate 250 MG CAP PO SCH ×2 (08:30→20:33)
[2023-02-28] MEDS: Clopidogrel Bisulfate 75 MG TAB PO SCH (08:30)
[2023-02-28] MEDS: Rosuvastatin 10 MG TAB PO SCH (08:30)
[2023-02-28] MEDS: Gabapentin 300 MG CAP PO SCH ×3 (08:31→20:32)
[2023-02-28] MEDS: Hydrocortisone Sod Succ/PF 100 mg/2 ml Vial IVP SCH ×2 (08:31→20:33)
[2023-02-28] MEDS: Senokot S 8.6-50 MG TAB PO SCH ×2 (08:31→20:32)
[2023-02-28] MEDS: Polyethylene Glycol 3350 17 GM Packet PO SCH (08:31)
[2023-02-28] MEDS: Enoxaparin 40 MG (0.4 mL) SYRINGE SC SCH (08:31)
[2023-02-28] MEDS: Budesonide 0.5 MG/2 ML NEB NEB SCH ×2 (09:32→20:31)
[2023-02-28] MEDS ORDERED: Heparin 1,000 UNITS/ML VIAL ONE (13:04)
[2023-02-28] MEDS: traZODone HCl 50 MG TAB PO SCH (20:32)
[2023-02-28] MEDS: Transdermal Patch Removal TOP SCH (20:34)
[2023-03-01] MEDS: tiZANidine HCl 4 MG TAB PO SCH ×3 (02:03→18:44)
[2023-03-01] MEDS: Levothyroxine 150 MCG TAB PO SCH (05:09)
[2023-03-01] MEDS: Lidocaine 4% Patch TD PRN (05:09)
[2023-03-01] MEDS: HYDROcodone/Acetaminophen 10/325 mg Tablet PO PRN ×4 (05:16→18:44)
[2023-03-01] MEDS: Budesonide 0.5 MG/2 ML NEB NEB SCH ×2 (08:42→19:31)
[2023-03-01] MEDS: Meropenem 1 GM in Sodium Chloride 0.9% 100 ML IVPB SCH ×3 (09:24→23:48)
[2023-03-01] MEDS: Hydrocortisone Sod Succ/PF 100 mg/2 ml Vial IVP SCH ×2 (09:26→19:59)
[2023-03-01] MEDS: Gabapentin 300 MG CAP PO SCH ×3 (09:33→19:58)
[2023-03-01] MEDS: Enoxaparin 40 MG (0.4 mL) SYRINGE SC SCH (09:34)
[2023-03-01] MEDS: Mycophenolate 250 MG CAP PO SCH ×2 (09:35→19:59)
[2023-03-01] MEDS: Senokot S 8.6-50 MG TAB PO SCH ×2 (09:35→19:59)
[2023-03-01] MEDS: Rosuvastatin 10 MG TAB PO SCH (09:35)
[2023-03-01] MEDS: Clopidogrel Bisulfate 75 MG TAB PO SCH (09:35)
[2023-03-01] MEDS: Polyethylene Glycol 3350 17 GM Packet PO SCH (09:37)
[2023-03-01] MEDS: traZODone HCl 50 MG TAB PO SCH (19:59)
[2023-03-01] MEDS: Transdermal Patch Removal TOP SCH (20:00)
[2023-03-02] MEDS: tiZANidine HCl 4 MG TAB PO SCH ×3 (01:56→18:10)
[2023-03-02] MEDS: HYDROcodone/Acetaminophen 10/325 mg Tablet PO PRN ×5 (04:59→21:26)
[2023-03-02] MEDS: Levothyroxine 150 MCG TAB PO SCH (05:03)
[2023-03-02] MEDS: Budesonide 0.5 MG/2 ML NEB NEB SCH ×2 (08:11→19:34)
[2023-03-02] MEDS: Polyethylene Glycol 3350 17 GM Packet PO SCH (08:58)
[2023-03-02] MEDS: Enoxaparin 40 MG (0.4 mL) SYRINGE SC SCH (08:58)
[2023-03-02] MEDS: Meropenem 1 GM in Sodium Chloride 0.9% 100 ML IVPB SCH ×2 (08:58→16:06)
[2023-03-02] MEDS: Hydrocortisone Sod Succ/PF 100 mg/2 ml Vial IVP SCH ×2 (08:59→21:13)
[2023-03-02] MEDS: Gabapentin 300 MG CAP PO SCH ×3 (08:59→21:12)
[2023-03-02] MEDS: Clopidogrel Bisulfate 75 MG TAB PO SCH (08:59)
[2023-03-02] MEDS: Senokot S 8.6-50 MG TAB PO SCH ×2 (09:00→21:12)
[2023-03-02] MEDS: Rosuvastatin 10 MG TAB PO SCH (09:00)
[2023-03-02] MEDS: Mycophenolate 250 MG CAP PO SCH ×2 (09:00→21:13)
[2023-03-02] MEDS: traZODone HCl 50 MG TAB PO SCH (21:13)
[2023-03-02] MEDS: Transdermal Patch Removal TOP SCH (21:16)
[2023-03-03] MEDS: tiZANidine HCl 4 MG TAB PO SCH ×3 (01:11→16:59)
[2023-03-03] MEDS: Meropenem 1 GM in Sodium Chloride 0.9% 100 ML IVPB SCH ×3 (01:11→16:59)
[2023-03-03] MEDS: HYDROcodone/Acetaminophen 10/325 mg Tablet PO PRN ×4 (05:10→20:08)
[2023-03-03] MEDS: Levothyroxine 150 MCG TAB PO SCH (05:10)
[2023-03-03] MEDS: Budesonide 0.5 MG/2 ML NEB NEB SCH ×2 (06:42→19:43)
[2023-03-03] MEDS: Transdermal Patch Removal TOP SCH ×2 (06:59→20:12)
[2023-03-03] MEDS: Hydrocortisone Sod Succ/PF 100 mg/2 ml Vial IVP SCH ×2 (08:46→20:12)
[2023-03-03] MEDS: Polyethylene Glycol 3350 17 GM Packet PO SCH (08:47)
[2023-03-03] MEDS: Senokot S 8.6-50 MG TAB PO SCH ×2 (08:47→20:08)
[2023-03-03] MEDS: Enoxaparin 40 MG (0.4 mL) SYRINGE SC SCH (08:47)
[2023-03-03] MEDS: Clopidogrel Bisulfate 75 MG TAB PO SCH (08:48)
[2023-03-03] MEDS: Rosuvastatin 10 MG TAB PO SCH (08:48)
[2023-03-03] MEDS: Mycophenolate 250 MG CAP PO SCH ×2 (08:48→20:09)
[2023-03-03] MEDS: Gabapentin 300 MG CAP PO SCH ×3 (08:48→20:08)
[2023-03-03] MEDS: traZODone HCl 50 MG TAB PO SCH (20:08)
[2023-03-04] MEDS: Meropenem 1 GM in Sodium Chloride 0.9% 100 ML IVPB SCH ×4 (01:18→23:50)
[2023-03-04] MEDS: tiZANidine HCl 4 MG TAB PO SCH ×3 (01:18→18:18)
[2023-03-04] MEDS: Levothyroxine 150 MCG TAB PO SCH (06:05)
[2023-03-04] MEDS: HYDROcodone/Acetaminophen 10/325 mg Tablet PO PRN ×4 (06:05→23:52)
[2023-03-04] MEDS: Budesonide 0.5 MG/2 ML NEB NEB SCH ×2 (06:53→19:02)
[2023-03-04] MEDS: Hydrocortisone Sod Succ/PF 100 mg/2 ml Vial IVP SCH ×2 (09:48→21:26)
[2023-03-04] MEDS: Mycophenolate 250 MG CAP PO SCH ×2 (09:48→21:26)
[2023-03-04] MEDS: Enoxaparin 40 MG (0.4 mL) SYRINGE SC SCH (09:48)
[2023-03-04] MEDS: Gabapentin 300 MG CAP PO SCH ×3 (09:49→21:25)
[2023-03-04] MEDS: Clopidogrel Bisulfate 75 MG TAB PO SCH (09:49)
[2023-03-04] MEDS: Rosuvastatin 10 MG TAB PO SCH (09:49)
[2023-03-04] MEDS: Senokot S 8.6-50 MG TAB PO SCH ×2 (09:49→21:25)
[2023-03-04] MEDS: Polyethylene Glycol 3350 17 GM Packet PO SCH (09:50)
[2023-03-04 10:45] VITALS: BMI 32.0
[2023-03-04] MEDS: traZODone HCl 50 MG TAB PO SCH (21:26)
[2023-03-04] MEDS: Transdermal Patch Removal TOP SCH (21:26)
[2023-03-05] MEDS: tiZANidine HCl 4 MG TAB PO SCH ×2 (02:41→10:09)
[2023-03-05] MEDS: Levothyroxine 150 MCG TAB PO SCH (05:52)
[2023-03-05] MEDS: HYDROcodone/Acetaminophen 10/325 mg Tablet PO PRN ×2 (05:55→14:46)
[2023-03-05] MEDS: Budesonide 0.5 MG/2 ML NEB NEB SCH (07:43)
[2023-03-05] MEDS: Mycophenolate 250 MG CAP PO SCH (10:07)
[2023-03-05] MEDS: Rosuvastatin 10 MG TAB PO SCH (10:08)
[2023-03-05] MEDS: Gabapentin 300 MG CAP PO SCH ×2 (10:08→14:46)
[2023-03-05] MEDS: Clopidogrel Bisulfate 75 MG TAB PO SCH (10:08)
[2023-03-05] MEDS: Senokot S 8.6-50 MG TAB PO SCH (10:08)
[2023-03-05] MEDS: Enoxaparin 40 MG (0.4 mL) SYRINGE SC SCH (10:09)
[2023-03-05] MEDS: Polyethylene Glycol 3350 17 GM Packet PO SCH (10:09)
[2023-03-05] MEDS: Hydrocortisone Sod Succ/PF 100 mg/2 ml Vial IVP SCH (10:09)
[2023-03-05 12:23] VITALS: BP 141/84; TEMP 98
== END 2023-03-05 15:33 | DRG 871 ==
LOC: ERS 11:14 → ERHOLD 18:42 → 2SE 02-24 18:36 → SURG A 02-27 16:30
PROVIDERS: ADMIT Student in an Organized Health Care Education/Training Program; ATTEND Internal Medicine
PROC: 3E03329 Introduction of Other Anti-infective into Peripheral Vein, Percutaneous Approach (ICD-10-PCS; 2023-02-23)
PROC: 3E033XZ Introduction of Vasopressor into Peripheral Vein, Percutaneous Approach (ICD-10-PCS; 2023-02-23)
PROC: 02HV33Z Insertion of Infusion Device into Superior Vena Cava, Percutaneous Approach (ICD-10-PCS; principal; 2023-02-28)
PROC: B5181ZA Fluoroscopy of Superior Vena Cava using Low Osmolar Contrast, Guidance (ICD-10-PCS; 2023-02-28)
PROC: 3E04329 Introduction of Other Anti-infective into Central Vein, Percutaneous Approach (ICD-10-PCS; 2023-02-28)
PROC: B548ZZA Ultrasonography of Superior Vena Cava, Guidance (ICD-10-PCS; 2023-02-28)
DX: A41.51 Sepsis due to Escherichia coli [E. coli] (principal); I21.A1 Myocardial infarction type 2; R65.21 Severe sepsis with septic shock; S22.069A Unspecified fracture of T7-T8 vertebra, initial encounter for closed fracture; S22.059A Unspecified fracture of T5-T6 vertebra, initial encounter for closed fracture; N39.0 Urinary tract infection, site not specified; E87.1 Hypo-osmolality and hyponatremia; J96.10 Chronic respiratory failure, unspecified whether with hypoxia or hypercapnia; I50.32 Chronic diastolic (congestive) heart failure; N10 Acute pyelonephritis; R53.81 Other malaise; I11.0 Hypertensive heart disease with heart failure; E03.9 Hypothyroidism, unspecified; J84.10 Pulmonary fibrosis, unspecified; R79.89 Other specified abnormal findings of blood chemistry; J44.9 Chronic obstructive pulmonary disease, unspecified; F10.90 Alcohol use, unspecified, uncomplicated; Z87.891 Personal history of nicotine dependence; Z88.0 Allergy status to penicillin; Z88.5 Allergy status to narcotic agent; Z91.040 Latex allergy status; Z90.49 Acquired absence of other specified parts of digestive tract; Z98.890 Other specified postprocedural states; Z90.710 Acquired absence of both cervix and uterus; Z11.52 Encounter for screening for COVID-19
CPT/HCPCS: 36415; 36556; 36569; 71045; 72128; 74177; 80048; 80053; 80202; 81001; 83605; 83735; 84439; 84443; 84484; 85025; 85610; 85730; 86140; 87040; 87077; 87086; 87186; 93005; 94640; 96374; 96375; 96376; J0692; J1644; J1650; J1720; J2185; J3010; J3370; J3490; J7050; J7517; J7620; J7626; Q9967

== ENCOUNTER 2023-03-12 13:37 | Inpatient (IN) | payer MEDICARE, MEDICAID ==
[~2023-03-12 13:37] MED LIST changes: +Meropenem 1 GM in Sodium Chloride 0.9% 100 ML IVPB SCH
[2023-03-12 14:46] LABS: Bacteria/HPF 4+ HPF (None Seen); Bilirubin Negative (Negative); Blood, Urine Negative (Negative); CAUTI Indications for Culture Dysuria,urgency,freq; Clarity Turbid (Clear); Glucose, Urine (Dipstick) Greater than 1000 mg/dL (Negative); Ketone, Urine Negative (Negative); Leukocyte 500 Leu/uL (Negative); Nitrite Negative (Negative); Protein, Urine (Dipstick) Negative (Neg-Trace); RBC/HPF 0-3 HPF (0-3); Specific Gravity, Urine 1.007 (1.002-1.036); Squamous Epithelial 21-50 HPF (0-3); Transitional Epithelial 0-3 HPF (None Seen); Urobilinogen Normal mg/dL (Less than 2); pH, Urine 6.5 (5.0-9.0)
[2023-03-12 14:47] LABS: Urine Culture Reflex Yes Yes
[2023-03-12 14:49] LABS: #Eosinphils 0.4 thou/uL (0.0-0.7); #Monocytes 0.6 thou/uL (0.11-0.59); #Neutrophils 4.4 thou/uL (1.40-6.50); %Basophils 0.3 % (0.0-1.0); %Eosinophils 5.5 % (0.0-10.0); %Lymphocytes 24.9 % (21.0-51.0); %Monocytes 8.4 % (0.0-10.0); %Neutrophils 60.6 % (42.0-75.0); Hematocrit 37.8 % (36.0-47.0); Hemoglobin 11.2 g/dL (12.0-16.0); Mean Corpuscular HGB CONC 29.6 g/dL (32.0-36.0); Mean Corpuscular Hemoglobin 28.7 pg (27.0-31.0); Mean Corpuscular Volume 96.9 fl (78.0-98.0); Mean Platelet Volume 11.1 fL (7.4-10.4); Platelet Count 227 10x3/uL (130-400); RBC Distribution Width 14.7 % (11.5-14.5); White Blood Cell (WBC) Count 7.2 10x3/uL (4.8-10.8)
[2023-03-12 15:07] LABS: ALT (SGPT) 14 U/L (8-55); AST (SGOT) 16 U/L (5-34); Albumin 3.4 g/dL (3.4-4.8); Alkaline Phosphatase 71 U/L (40-110); Anion Gap 11 mmol/L (10-20); BUN (Urea Nitrogen) 10 mg/dL (9.8-20.1); Bilirubin, Total 0.7 mg/dL (0.2-1.2); Calc. Creatinine Clearance 0 mL/min (70-130); Calcium 8.6 mg/dL (7.8-10.44); Carbon Dioxide 26 mmol/L (23-31); Chloride 103 mmol/L (98-107); Estimated GFR 94; Globulin 2.9 g/dL (2.4-3.5); Glucose 88 mg/dL (83-110); Lipase Less than 4 U/L (8-78); Potassium 4.3 mmol/L (3.5-5.1); Protein, Total 6.3 g/dL (5.8-8.1); Sodium 136 mmol/L (136-145)
[2023-03-12 15:10] LABS: Troponin I 0.029 ng/mL (< 0.028)
[2023-03-12 15:11] LABS: SARS-CoV-2 NAA Rapid Test Not Detected (NotDetected)
[2023-03-12] MEDS ORDERED: Acetaminophen 325 MG TAB PO PRN (17:03)
[2023-03-12] MEDS ORDERED: Ondansetron PF 4 MG/2 ML Vial IVP PRN (17:03)
[2023-03-12] MEDS ORDERED: Senokot S 8.6-50 MG TAB PO PRN (17:03)
[2023-03-12] MEDS ORDERED: Guaifenesin DM 100-10/5 ML UDCUP PO PRN (17:03)
[2023-03-12] MEDS ORDERED: Polyethylene Glycol 3350 17 GM Packet PO SCH (17:30)
[2023-03-12] MEDS ORDERED: Meropenem 1 GM in Sodium Chloride 0.9% 100 ML IVPB SCH (17:45)
[2023-03-12] MEDS ORDERED: Magnesium Citrate 300 ML BOT PO SCH ×2 (17:45→20:45)
[2023-03-12 19:12] LABS: Troponin I 0.036 ng/mL (< 0.028)
[2023-03-12] MEDS: Gabapentin 300 MG CAP PO SCH (20:29)
[2023-03-12] MEDS: HYDROcodone/Acetaminophen 10/325 mg Tablet PO SCH (20:30)
[2023-03-12] MEDS: traZODone HCl 50 MG TAB PO SCH (20:31)
[2023-03-12] MEDS: Mycophenolate 250 MG CAP PO SCH (20:31)
[2023-03-12] MEDS: Sodium Chloride 0.9% 1,000 ML IV SCH (20:32)
[2023-03-12] MEDS ORDERED: Famotidine 20 MG TAB PO SCH (21:00)
[2023-03-12 21:32] LABS: Troponin I 0.036 ng/mL (< 0.028)
[2023-03-12] MEDS ORDERED: Meropenem 500 MG in Sodium Chloride 0.9% 100 ML IVPB SCH (22:00)
[2023-03-13 00:58] VITALS: BMI 27.6
[2023-03-13] MEDS: Meropenem 1 GM in Sodium Chloride 0.9% 100 ML IVPB SCH ×3 (04:58→20:04)
[2023-03-13] MEDS: Levothyroxine 150 MCG TAB PO SCH (05:00)
[2023-03-13 06:38] LABS: #Eosinphils 0.4 thou/uL (0.0-0.7); #Monocytes 0.6 thou/uL (0.11-0.59); #Neutrophils 4.3 thou/uL (1.40-6.50); %Basophils 0.3 % (0.0-1.0); %Eosinophils 5.8 % (0.0-10.0); %Lymphocytes 17.6 % (21.0-51.0); %Monocytes 9.6 % (0.0-10.0); %Neutrophils 66.2 % (42.0-75.0); Hematocrit 35.2 % (36.0-47.0); Hemoglobin 10.4 g/dL (12.0-16.0); Mean Corpuscular HGB CONC 29.5 g/dL (32.0-36.0); Mean Corpuscular Hemoglobin 28.5 pg (27.0-31.0); Mean Corpuscular Volume 96.4 fl (78.0-98.0); Platelet Count 209 10x3/uL (130-400); RBC Distribution Width 14.7 % (11.5-14.5); Red Blood Cell (RBC) Count 3.65 mill/uL (4.20-5.40); White Blood Cell (WBC) Count 6.5 10x3/uL (4.8-10.8)
[2023-03-13 07:02] LABS: ALT (SGPT) 12 U/L (8-55); AST (SGOT) 13 U/L (5-34); Albumin 2.9 g/dL (3.4-4.8); Alkaline Phosphatase 59 U/L (40-110); Anion Gap 11 mmol/L (10-20); BUN (Urea Nitrogen) 10 mg/dL (9.8-20.1); Bilirubin, Total 0.6 mg/dL (0.2-1.2); Calc. Creatinine Clearance 85 mL/min (70-130); Calcium 8.2 mg/dL (7.8-10.44); Carbon Dioxide 28 mmol/L (23-31); Chloride 104 mmol/L (98-107); Estimated GFR 93; Globulin 2.7 g/dL (2.4-3.5); Glucose 79 mg/dL (83-110); Potassium 4.2 mmol/L (3.5-5.1); Protein, Total 5.6 g/dL (5.8-8.1); Sodium 139 mmol/L (136-145)
[2023-03-13] MEDS: Mycophenolate 250 MG CAP PO SCH ×2 (08:39→20:02)
[2023-03-13] MEDS: Gabapentin 300 MG CAP PO SCH ×3 (08:39→20:10)
[2023-03-13] MEDS: Clopidogrel Bisulfate 75 MG TAB PO SCH (08:40)
[2023-03-13] MEDS: Rosuvastatin 10 MG TAB PO SCH (08:40)
[2023-03-13] MEDS: HYDROcodone/Acetaminophen 10/325 mg Tablet PO SCH (08:40)
[2023-03-13] MEDS ORDERED: Meclizine HCl 25 MG TAB PO PRN (08:55)
[2023-03-13] MEDS ORDERED: Enoxaparin 30 MG (0.3 mL) SYRINGE SC SCH (09:00)
[2023-03-13] MEDS ORDERED: Empagliflozin 10 MG TAB PO SCH ×2 (09:00→10:45)
[2023-03-13] MEDS: Sodium Chloride 0.9% 1,000 ML IV SCH (13:00)
[2023-03-13] MEDS: HYDROcodone/Acetaminophen 10/325 mg Tablet PO PRN ×2 (14:41→20:14)
[2023-03-13] MEDS: Cyclobenzaprine 10 MG TAB PO PRN ×2 (14:41→20:03)
[2023-03-13] MEDS: traZODone HCl 50 MG TAB PO SCH (20:03)
[2023-03-14] MEDS: Meropenem 1 GM in Sodium Chloride 0.9% 100 ML IVPB SCH ×3 (04:50→20:29)
[2023-03-14] MEDS: Levothyroxine 150 MCG TAB PO SCH (05:00)
[2023-03-14] MEDS: HYDROcodone/Acetaminophen 10/325 mg Tablet PO PRN ×3 (06:32→18:17)
[2023-03-14] MEDS: Gabapentin 300 MG CAP PO SCH ×3 (08:02→20:30)
[2023-03-14] MEDS: Spironolactone 25 MG TAB PO SCH (08:03)
[2023-03-14] MEDS: Mycophenolate 250 MG CAP PO SCH ×2 (08:03→20:30)
[2023-03-14] MEDS: Rosuvastatin 10 MG TAB PO SCH (08:03)
[2023-03-14] MEDS: Clopidogrel Bisulfate 75 MG TAB PO SCH (08:04)
[2023-03-14] MEDS: Empagliflozin 10 MG TAB PO SCH (08:09)
[2023-03-14] MEDS: Enoxaparin 40 MG (0.4 mL) SYRINGE SC SCH (08:10)
[2023-03-14] MEDS: Cyclobenzaprine 10 MG TAB PO PRN ×3 (08:14→20:39)
[2023-03-14] MEDS ORDERED: Albuterol 2.5 MG (3 mL) NEB NEB PRN (10:51)
[2023-03-14] MEDS ORDERED: Albuterol 1.25 MG (3 mL) NEB NEB SCH (11:00)
[2023-03-14] MEDS ORDERED: Budesonide 0.5 MG/2 ML NEB NEB SCH (11:00)
[2023-03-14 15:50] LABS: Bacteria/HPF None Seen HPF (None Seen); Bilirubin Negative (Negative); Blood, Urine Negative (Negative); CAUTI Indications for Culture Dysuria,urgency,freq; Clarity Clear (Clear); Glucose, Urine (Dipstick) >=1000 mg/dL (Negative); Ketone, Urine Negative (Negative); Leukocyte Negative Leu/uL (Negative); Nitrite Negative (Negative); Protein, Urine (Dipstick) Negative (Neg-Trace); RBC/HPF 0-3 HPF (0-3); Specific Gravity, Urine 1.007 (1.002-1.036); Squamous Epithelial 0-3 HPF (0-3); Urobilinogen Normal mg/dL (Less than 2); WBC/HPF 0-3 HPF (0-3); pH, Urine 6.5 (5.0-9.0)
[2023-03-14 15:51] LABS: Urine Culture Reflex No No
[2023-03-14] MEDS: Budesonide 0.5 MG/2 ML NEB NEB SCH (19:37)
[2023-03-14] MEDS: traZODone HCl 50 MG TAB PO SCH (20:31)
[2023-03-15] MEDS: HYDROcodone/Acetaminophen 10/325 mg Tablet PO PRN ×2 (05:17→11:14)
[2023-03-15] MEDS: Levothyroxine 150 MCG TAB PO SCH (05:18)
[2023-03-15] MEDS: Meropenem 1 GM in Sodium Chloride 0.9% 100 ML IVPB SCH ×2 (05:18→13:21)
[2023-03-15] MEDS: Budesonide 0.5 MG/2 ML NEB NEB SCH (08:02)
[2023-03-15] MEDS ORDERED: Sodium Chloride 0.9% 500 ML IV SCH (09:15)
[2023-03-15 09:17] VITALS: TEMP 98.1
[2023-03-15] MEDS: Rosuvastatin 10 MG TAB PO SCH (10:10)
[2023-03-15] MEDS: Clopidogrel Bisulfate 75 MG TAB PO SCH (10:11)
[2023-03-15] MEDS: Gabapentin 300 MG CAP PO SCH ×2 (10:11→14:52)
[2023-03-15] MEDS: Empagliflozin 10 MG TAB PO SCH (10:11)
[2023-03-15 11:09] VITALS: BP 90/55
[2023-03-15] MEDS: Mycophenolate 250 MG CAP PO SCH (11:16)
[2023-03-15] MEDS: Enoxaparin 40 MG (0.4 mL) SYRINGE SC SCH (12:49)
[2023-03-15] MEDS: Spironolactone 25 MG TAB PO SCH (12:54)
== END 2023-03-15 14:57 | disposition swing bed (61) | DRG 690 ==
LOC: ERS 13:37 → MSONC 17:03 → OBSVTOIN 03-14 12:57
PROVIDERS: ADMIT Hospitalist; ATTEND Hospitalist
DX: N39.0 Urinary tract infection, site not specified (principal); J96.10 Chronic respiratory failure, unspecified whether with hypoxia or hypercapnia; Z16.24 Resistance to multiple antibiotics; A49.9 Bacterial infection, unspecified; B96.20 Unspecified Escherichia coli [E. coli] as the cause of diseases classified elsewhere; M81.0 Age-related osteoporosis without current pathological fracture; G47.33 Obstructive sleep apnea (adult) (pediatric); I10 Essential (primary) hypertension; I25.2 Old myocardial infarction; J84.10 Pulmonary fibrosis, unspecified; R79.89 Other specified abnormal findings of blood chemistry; G89.4 Chronic pain syndrome; K59.00 Constipation, unspecified; Z88.5 Allergy status to narcotic agent; Z91.040 Latex allergy status; Z88.0 Allergy status to penicillin; Z90.49 Acquired absence of other specified parts of digestive tract; Z98.890 Other specified postprocedural states; Z87.891 Personal history of nicotine dependence
CPT/HCPCS: 36415; 36416; 51701; 71045; 71275; 74177; 80053; 81001; 83605; 83690; 83880; 84484; 85025; 87040; 87077; 87086; 93005; 94640; 96365; 96366; 96372; 96376; G0378; J1650; J2185; J3490; J7030; J7050; J7517; J7611; J7626; Q9967

== ENCOUNTER 2023-04-21 15:12 | Inpatient (IN) | payer MEDICARE, MEDICAID ==
[2023-04-21 16:09] LABS: #Eosinphils 0.1 thou/uL (0.0-0.7); #Monocytes 0.4 thou/uL (0.11-0.59); #Neutrophils 9.3 thou/uL (1.40-6.50); %Basophils 0.3 % (0.0-1.0); %Eosinophils 0.7 % (0.0-10.0); %Lymphocytes 15.9 % (21.0-51.0); %Monocytes 3.5 % (0.0-10.0); %Neutrophils 79.3 % (42.0-75.0); Hematocrit 44.6 % (36.0-47.0); Hemoglobin 13.4 g/dL (12.0-16.0); Mean Corpuscular Hemoglobin 28.9 pg (27.0-31.0); Mean Corpuscular Volume 96.1 fl (78.0-98.0); Mean Platelet Volume 11.5 fL (7.4-10.4); Platelet Count 164 10x3/uL (130-400); RBC Distribution Width 14.3 % (11.5-14.5); Red Blood Cell (RBC) Count 4.64 mill/uL (4.20-5.40); White Blood Cell (WBC) Count 11.8 10x3/uL (4.8-10.8)
[2023-04-21 16:25] LABS: ALT (SGPT) Less than 7 U/L (8-55); AST (SGOT) 14 U/L (5-34); Albumin 3.8 g/dL (3.4-4.8); Alkaline Phosphatase 67 U/L (40-110); Anion Gap 15 mmol/L (10-20); BUN (Urea Nitrogen) 11 mg/dL (9.8-20.1); Calc. Creatinine Clearance 0 mL/min (70-130); Calcium 9.2 mg/dL (7.8-10.44); Carbon Dioxide 26 mmol/L (23-31); Chloride 100 mmol/L (98-107); Estimated GFR 87; Globulin 2.9 g/dL (2.4-3.5); Glucose 83 mg/dL (83-110); Potassium 4.1 mmol/L (3.5-5.1); Protein, Total 6.7 g/dL (5.8-8.1); Sodium 137 mmol/L (136-145)
[2023-04-21 16:30] LABS: Troponin I 0.025 ng/mL (< 0.028)
[2023-04-21] MEDS ORDERED: methylPREDNISolone Sod Succ/PF 125 MG/2 ML VIAL ONE (16:33)
[2023-04-21] MEDS ORDERED: Magnesium 2 GM/50 ML BAG (IN WATER) ONE (16:33)
[2023-04-21] MEDS ORDERED: Ipratropium/Albuterol 3 ML NEB ONE (16:39)
[2023-04-21 16:54] LABS: Actual Bicarbonate (HCO3a) 25.8 mEq/L (22-28); Analyzer IN Cardio ER; Base Excess (BEa) 0.6 mEq/L (-2.0 to +3.0); CO2 Tension 43.6 mmHg (35.0-45.0); Calcium, Ionized (arterial) 1.18 mmol/L (1.12-1.30); Carboxyhemoglobin (COHb) 2.3 gm% (0.0-3.0); Hematocrit-ABG 39 % (36.0-47.0); Hemoglobin (Hb) 13.3 g/dL (12.0-16.0); O2 Tension (PaO2), arterial 79.5 mmHg (> 70.0); Potassium - ABG Lab 4.31 mmol/L (3.70-5.30)
[2023-04-21 16:56] LABS: Puncture Site RRA
[2023-04-21 17:06] LABS: Clarity Cloudy (Clear)
[2023-04-21 17:08] LABS: Leukocyte Unable to Interpret (Negative); Nitrite Unable to Interpret (Negative); Protein, Urine (Dipstick) Unable to Interpret mg/dL (Neg-Trace); Specific Gravity, Urine 1.015 (1.002-1.036)
[2023-04-21 17:09] LABS: Bilirubin Unable to Interpret (Negative); Blood, Urine Trace (Negative); Glucose, Urine (Dipstick) >=1000 mg/dL (Negative); Ketone, Urine Unable to Interpret mg/dL (Negative); Urobilinogen UNABLE TO INTERPRET mg/dL (Less than 2)
[2023-04-21] MEDS ORDERED: Sodium Chloride 0.9% 0 ML ONE (17:17)
[2023-04-21] MEDS ORDERED: cefTRIAXone (ROCEPHIN) 2 GM VIAL ONE (17:17)
[2023-04-21 17:21] LABS: Bacteria/HPF 4+ HPF (None Seen); CAUTI Indications for Culture Dysuria,urgency,freq; RBC/HPF 0-3 HPF (0-3); Squamous Epithelial 0-3 HPF (0-3); WBC/HPF Greater Than 50 HPF (0-3)
[2023-04-21 17:22] LABS: Urine Culture Reflex Yes Yes
[2023-04-21 17:34] LABS: Influenza A by NAA Not Detected (NotDetected); Influenza B by NAA Not Detected (NotDetected); SARS-CoV-2 NAA Rapid Test Not Detected (NotDetected)
[2023-04-21] MEDS ORDERED: Azithromycin 500 MG VIAL ONE (18:18)
[2023-04-21 18:25] LABS: Magnesium 2.5 mg/dL (1.6-2.6)
[2023-04-21] MEDS ORDERED: Albuterol 2.5 MG (3 mL) NEB NEB PRN (20:13)
[2023-04-21] MEDS ORDERED: Acetaminophen 325 MG TAB PO PRN (20:15)
[2023-04-21] MEDS ORDERED: Ondansetron PF 4 MG/2 ML Vial IVP PRN (20:15)
[2023-04-21] MEDS ORDERED: Ondansetron ODT 4 MG TAB SL PRN (20:15)
[2023-04-21] MEDS ORDERED: Dextrose 5% in Water 1,000 ML IV PRN (20:50)
[2023-04-21] MEDS ORDERED: HumaLOG 300 UNITS/3 ML VIAL SC PRN ×2 (20:50)
[2023-04-21] MEDS ORDERED: Glucagon 1 MG/ML KIT IM PRN (20:50)
[2023-04-21] MEDS ORDERED: Dextrose 50% Abboject 50 ML SYRINGE SLOW IVP PRN (20:50)
[2023-04-21 21:02] LABS: Troponin I 0.015 ng/mL (< 0.028)
[2023-04-21] MEDS: Fluconazole 100 MG TAB PO SCH (22:02)
[2023-04-21 22:46] LABS: #Neutrophils 6.7 thou/uL (1.40-6.50); %Basophils 0.1 % (0.0-1.0); %Eosinophils 0.1 % (0.0-10.0); %Lymphocytes 7.5 % (21.0-51.0); %Monocytes 0.4 % (0.0-10.0); %Neutrophils 91.4 % (42.0-75.0); Hematocrit 44.6 % (36.0-47.0); Hemoglobin 13.2 g/dL (12.0-16.0); Mean Corpuscular HGB CONC 29.6 g/dL (32.0-36.0); Mean Corpuscular Hemoglobin 28.5 pg (27.0-31.0); Mean Corpuscular Volume 96.3 fl (78.0-98.0); Mean Platelet Volume 11.2 fL (7.4-10.4); Platelet Count 142 10x3/uL (130-400); RBC Distribution Width 14.2 % (11.5-14.5); Red Blood Cell (RBC) Count 4.63 mill/uL (4.20-5.40); White Blood Cell (WBC) Count 7.3 10x3/uL (4.8-10.8)
[2023-04-21 23:02] LABS: Anion Gap 17 mmol/L (10-20); BUN (Urea Nitrogen) 11 mg/dL (9.8-20.1); Calc. Creatinine Clearance 0 mL/min (70-130); Calcium 8.9 mg/dL (7.8-10.44); Carbon Dioxide 19 mmol/L (23-31); Chloride 105 mmol/L (98-107); Estimated GFR 92; Glucose 92 mg/dL (83-110); Potassium 4.6 mmol/L (3.5-5.1); Sodium 136 mmol/L (136-145)
[2023-04-21 23:23] LABS: Troponin I 0.019 ng/mL (< 0.028)
[2023-04-21] MEDS: Ipratropium/Albuterol 3 ML NEB NEB PRN (23:39)
[2023-04-21] MEDS: traZODone HCl 50 MG TAB PO SCH (23:46)
[2023-04-21] MEDS: HYDROcodone/Acetaminophen 10/325 mg Tablet PO PRN (23:47)
[2023-04-22 01:39] VITALS: BMI 26.3
[2023-04-22] MEDS: Azithromycin 500 MG in Sodium Chloride 0.9% 250 ML 250 ML IVPB SCH (16:53)
[2023-04-22] MEDS: cefTRIAXone\\ROCEPHIN 1 GM in Sodium Chloride 0.9% 100 ML IVPB SCH (16:53)
[2023-04-22] MEDS ORDERED: methylPREDNISolone Sod Succ/PF 125 MG/2 ML VIAL IVP SCH (17:15)
[2023-04-22] MEDS: Cefepime 2 GM in Sodium Chloride 0.9% 100 ML IVPB SCH (18:33)
[2023-04-22] MEDS: methylPREDNISolone Sod Succ 40 MG VIAL IVP SCH (18:33)
[2023-04-22] MEDS: HYDROcodone/Acetaminophen 5/325 mg Tablet PO PRN (21:14)
[2023-04-23 04:31] LABS: #Eosinphils 0.1 thou/uL (0.0-0.7); #Monocytes 0.4 thou/uL (0.11-0.59); #Neutrophils 6.2 thou/uL (1.40-6.50); %Basophils 0.1 % (0.0-1.0); %Eosinophils 0.7 % (0.0-10.0); %Lymphocytes 23.9 % (21.0-51.0); %Monocytes 4.3 % (0.0-10.0); %Neutrophils 70.7 % (42.0-75.0); Hematocrit 38.9 % (36.0-47.0); Mean Corpuscular HGB CONC 30.8 g/dL (32.0-36.0); Mean Corpuscular Hemoglobin 28.7 pg (27.0-31.0); Mean Corpuscular Volume 93.1 fl (78.0-98.0); Mean Platelet Volume 12.2 fL (7.4-10.4); Platelet Count 154 10x3/uL (130-400); RBC Distribution Width 14.2 % (11.5-14.5); Red Blood Cell (RBC) Count 4.18 mill/uL (4.20-5.40); White Blood Cell (WBC) Count 8.8 10x3/uL (4.8-10.8)
[2023-04-23 04:41] LABS: Anion Gap 15 mmol/L (10-20); BUN (Urea Nitrogen) 15 mg/dL (9.8-20.1); Calc. Creatinine Clearance 73 mL/min (70-130); Calcium 9.2 mg/dL (7.8-10.44); Carbon Dioxide 24 mmol/L (23-31); Chloride 103 mmol/L (98-107); Estimated GFR 92; Glucose 61 mg/dL (83-110); Sodium 138 mmol/L (136-145)
[2023-04-23] MEDS ORDERED: Non-Formulary Item 1 EACH (Lidocaine [Lidocaine 5% Patch] 1 EACH Adh..Patch) TOP SCH (09:00)
[2023-04-23] MEDS: predniSONE 20 MG TAB PO SCH (09:07)
[2023-04-23] MEDS: HYDROcodone/Acetaminophen 10/325 mg Tablet PO SCH (09:43)
[2023-04-23] MEDS ORDERED: Sodium Bicarbonate 2.5 MEQ/5 ML SDV ONE (10:22)
[2023-04-23] MEDS ORDERED: Lidocaine 1% PF 5 ML VIAL ONE (10:23)
[2023-04-23] MEDS ORDERED: Budesonide 0.5 MG/2 ML NEB NEB SCH (11:00)
[2023-04-23] MEDS: Ipratropium/Albuterol 3 ML NEB NEB SCH (11:08)
[2023-04-23] MEDS: Empagliflozin 10 MG TAB PO SCH (11:59)
[2023-04-23] MEDS: Meropenem 1 GM in Sodium Chloride 0.9% 100 ML IVPB SCH ×3 (11:59→20:30)
[2023-04-23] MEDS: Clopidogrel Bisulfate 75 MG TAB PO SCH (11:59)
[2023-04-23] MEDS: Senokot S 8.6-50 MG TAB PO SCH ×2 (11:59→20:29)
[2023-04-23] MEDS: Lidocaine 4% Patch TD SCH (12:00)
[2023-04-23] MEDS ORDERED: Meropenem 1 GM in Sodium Chloride 0.9% 100 ML IVPB SCH (14:00)
[2023-04-23] MEDS: Gabapentin 300 MG CAP PO SCH (15:03)
[2023-04-23] MEDS: Budesonide 0.5 MG/2 ML NEB NEB SCH (18:14)
[2023-04-23] MEDS: tiZANidine HCl 4 MG TAB PO PRN (20:41)
[2023-04-23] MEDS: ALPRAZolam 0.25 MG TAB PO PRN (22:16)
[2023-04-23] MEDS: Transdermal Patch Removal TOP SCH (23:00)
[2023-04-23] MEDS ORDERED: HYDROcodone/Acetaminophen 10/325 mg Tablet PO SCH (23:00)
[2023-04-24] MEDS: Mycophenolate Mofetil [Mycophenolate Mofetil] 500 MG Tablet PO SCH (00:11)
[2023-04-24 04:21] LABS: #Monocytes 0.5 thou/uL (0.11-0.59); #Neutrophils 6.2 thou/uL (1.40-6.50); %Basophils 0.1 % (0.0-1.0); %Eosinophils 0.1 % (0.0-10.0); %Lymphocytes 20.2 % (21.0-51.0); %Monocytes 6.2 % (0.0-10.0); %Neutrophils 73.2 % (42.0-75.0); Hematocrit 41.2 % (36.0-47.0); Hemoglobin 12.6 g/dL (12.0-16.0); Mean Corpuscular HGB CONC 30.6 g/dL (32.0-36.0); Mean Corpuscular Volume 91.6 fl (78.0-98.0); Mean Platelet Volume 12.3 fL (7.4-10.4); Platelet Count 145 10x3/uL (130-400); RBC Distribution Width 14.2 % (11.5-14.5); White Blood Cell (WBC) Count 8.5 10x3/uL (4.8-10.8)
[2023-04-24 04:49] LABS: Anion Gap 13 mmol/L (10-20); BUN (Urea Nitrogen) 16 mg/dL (9.8-20.1); Calc. Creatinine Clearance 69 mL/min (70-130); Calcium 9.1 mg/dL (7.8-10.44); Carbon Dioxide 27 mmol/L (23-31); Chloride 102 mmol/L (98-107); Estimated GFR 88; Glucose 65 mg/dL (83-110); Potassium 4.3 mmol/L (3.5-5.1); Sodium 138 mmol/L (136-145)
[2023-04-24] MEDS: Levothyroxine 175 MCG TAB PO SCH (05:01)
[2023-04-24] MEDS: Clopidogrel Bisulfate 75 MG TAB PO SCH (10:01)
[2023-04-24] MEDS: Empagliflozin 10 MG TAB PO SCH (10:01)
[2023-04-24] MEDS: Spironolactone 25 MG TAB PO SCH (10:02)
[2023-04-25 04:28] LABS: #Monocytes 0.6 thou/uL (0.11-0.59); #Neutrophils 6.5 thou/uL (1.40-6.50); %Basophils 0.1 % (0.0-1.0); %Eosinophils 0.5 % (0.0-10.0); %Lymphocytes 16.5 % (21.0-51.0); %Monocytes 6.9 % (0.0-10.0); %Neutrophils 75.6 % (42.0-75.0); Hematocrit 40.6 % (36.0-47.0); Hemoglobin 12.3 g/dL (12.0-16.0); Mean Corpuscular HGB CONC 30.3 g/dL (32.0-36.0); Mean Corpuscular Volume 92.3 fl (78.0-98.0); Mean Platelet Volume 12.3 fL (7.4-10.4); Platelet Count 146 10x3/uL (130-400); RBC Distribution Width 14.1 % (11.5-14.5); White Blood Cell (WBC) Count 8.6 10x3/uL (4.8-10.8)
[2023-04-25 04:49] LABS: Anion Gap 12 mmol/L (10-20); BUN (Urea Nitrogen) 14 mg/dL (9.8-20.1); Calc. Creatinine Clearance 71 mL/min (70-130); Calcium 9.1 mg/dL (7.8-10.44); Carbon Dioxide 27 mmol/L (23-31); Chloride 101 mmol/L (98-107); Estimated GFR 91; Glucose 103 mg/dL (83-110); Sodium 136 mmol/L (136-145)
[2023-04-29 15:48] VITALS: BP 161/91; TEMP 97.4
== END 2023-04-29 15:45 | disposition home or self-care (01) | DRG 871 ==
LOC: ERS 15:12 → 2NO 20:05
PROVIDERS: ADMIT Hospitalist; ATTEND Emergency Medicine
PROC: 4A033R1 Measurement of Arterial Saturation, Peripheral, Percutaneous Approach (ICD-10-PCS; principal; 2023-04-21)
PROC: 3E03329 Introduction of Other Anti-infective into Peripheral Vein, Percutaneous Approach (ICD-10-PCS; 2023-04-21)
PROC: 02HV33Z Insertion of Infusion Device into Superior Vena Cava, Percutaneous Approach (ICD-10-PCS; 2023-04-23)
PROC: B5181ZA Fluoroscopy of Superior Vena Cava using Low Osmolar Contrast, Guidance (ICD-10-PCS; 2023-04-23)
DX: A41.9 Sepsis, unspecified organism (principal); J18.9 Pneumonia, unspecified organism; J96.21 Acute and chronic respiratory failure with hypoxia; N39.0 Urinary tract infection, site not specified; I50.32 Chronic diastolic (congestive) heart failure; Z88.5 Allergy status to narcotic agent; Z91.040 Latex allergy status; Z88.0 Allergy status to penicillin; Z79.899 Other long term (current) drug therapy; I25.2 Old myocardial infarction; I25.10 Atherosclerotic heart disease of native coronary artery without angina pectoris; E03.9 Hypothyroidism, unspecified; Z90.710 Acquired absence of both cervix and uterus; F41.9 Anxiety disorder, unspecified; Z87.891 Personal history of nicotine dependence; J84.10 Pulmonary fibrosis, unspecified; B37.31 Acute candidiasis of vulva and vagina; I11.0 Hypertensive heart disease with heart failure
CPT/HCPCS: 36415; 36416; 36569; 36600; 71045; 80048; 80053; 81001; 82805; 83605; 83735; 83880; 84484; 85025; 87040; 87077; 87081; 87086; 87186; 93005; 94640; 96365; 96367; 96375; J0456; J0692; J0696; J2185; J2920; J2930; J3475; J3490; J7050; J7512; J7620; J7626